=== PATIENT | female | born 1950 | race Caucasian/White ===

== ENCOUNTER 2018-01-10 05:17 | Observation (INO) | payer MEDICARE, OTHER, SELFPAY ==
[2017-12-28 10:14] VITALS: BP 181/94; PULSE 62; RESP 18; TEMP 36.7; O2SAT 95; BMI 39.7
--- NOTE | 2017-12-28 10:25 | SDCEKG_ITS ---
Test Reason : Blood Pressure : / mmHG Vent. Rate : 060 BPM Atrial Rate : 060 BPM P-R Int : 138 ms QRS Dur : 080 ms QT Int : 430 ms P-R-T Axes : 015 024 032 degrees QTc Int : 430 ms Normal sinus rhythm Normal ECG Confirmed by MARYAN BOYER, SHANICE ([id number]), society editor NENITA CERDA ([id number] on 12/30/2017 11:31:05 AM Referred By: Eric Hernandez Confirmed By:SHANICE STEINBERG MD
--- NOTE | 2018-01-05 10:18 | CASEMGMT ---
Social Work Note Placed call to pt to discuss discharge plan. Pt unavailable and SW left vm requesting a return phone call to RN NI Peterson. RN CM to f/u with post-operatively. Bee Garcia, REGIONAL BUSINESS MANAGER, SCHOOL CLERK
[2018-01-10] VITALS (16 sets, daily range): BP systolic 135–185; BP diastolic 64–89; PULSE 60–72; RESP 16–18; TEMP 36.2–37.1; O2SAT 95–100; BMI 39.7; BMI 41.5; BMI 39.8
[2018-01-10] MEDS: Acetaminophen 500 MG Tablet 1000 MG PO ×3 (05:55→22:11)
[2018-01-10] MEDS: oxyCODONE HCl Cr 10 MG Tablet PO (05:55)
[2018-01-10] MEDS: Celecoxib 200 MG Capsule 400 MG PO (05:55)
[2018-01-10 06:06] LABS: Bedside Glucose 109 mg/dL (70-110)
[2018-01-10] MEDS: Cefazolin 2 GM in 0.9% Normal Saline 100 ML IV (07:06)
--- NOTE | 2018-01-10 08:38 | PCM.OPRPT ---
Report of Operation Date of Procedure: 01/10/18 Pre-Operative Diagnosis: Severe end-stage osteoarthritis left knee Post-Operative Diagnosis: Severe end-stage osteoarthritis left knee Surgery/Procedure Performed:: Total knee arthroplasty left Description of Surgical Findings:: Eburnation of bone, subchondral sclerosis, periarticular osteophytes consistent with tricompartmental osteoarthritis resourcing advisor: Lul Bar Type of Anesthesia:: Spinal Anesthesiologist: Junito Lopez Special Medications: TXA Specimen's removed: bone and soft tissue Estimated Blood Loss (mL): 100 Fluids Replaced: see Anesthesia report Description of Procedure: Implants: Regular triathlon size 4 cemented posterior stabilized femur, 4 tibia, 32 x 10 mm patella all cemented with Simplex. 9 mm posterior stabilized articulating surface Indications: Patient has severe end-stage osteoarthritis diagnosed via x-rays in the knee. They have failed all forms of conservative measures including activity modification, injections, anti-inflammatories, use of assistive device. The patient has pain that affects on a daily basis and prevents him from doing things that they enjoyed. They have elected to undergo the above procedure. The risks of the procedure were discussed at length and their questions were answered. Procedure description: The patient was greeted in the preoperative area. The left knee was then marked with a surgical marker. Patient was then taken to or Suite 2. They were administered a dose of antibiotics as well as tranexamic acid. Once adequate anesthesia was obtained and airway was secured to placed in supine position on the operating room table. A well-padded tourniquet was placed on the affected extremity. Leg was then prepped and draped in the usual sterile fashion from the knee down. Ioban was used on the skin. Surgical timeout was then performed and confirmed with all present. Six-inch Esmarch was used to examine the limb and tourniquet was then inflated to 250 mmHg. A longitudinal incision was then planned and carried out in the anterior aspect of the knee. The dissection was then carried the length of the incision the extensor mechanism was identified. Standard medial parapatellar arthrotomy was then performed revealing severe eburnation of bone and periarticular osteophytes. There is complete loss of cartilage especially in the medial compartment with varus alignment. Anterior fat pad was removed for visualization purposes and the anterior medial aspect of the tibia was skeletonized for exposure to the knee. The knee was then flexed the patella was inverted. Opening reamer was then used in the femur approximately 1 cm anterior to the attachment of the PCL. The intramedullary valgus wand was then placed in the femur set at 5? of valgus. The distal femoral cutting jig was then applied to the femur with anticipated resection of approximately 8 mm. This was then made with a oscillating saw. The sizing guide was then placed referencing off the posterior condyles and also reference off the epicondylar axis. This was measured and the appropriate size 4-in-1 cutting jig was then applied to the distal femur. Anterior posterior cuts were made followed by the anterior and posterior chamfer cuts. These bony pieces and fragments were removed and placed on the back table. Posterior retractor was then utilized and the tibia was subluxed anteriorly. Extramedullary tibial alignment jig was then applied to the tibia referencing off the medial one third of the tibial tubercle the anterior tibial spine the middle aspect of the tibiotalar joint. Also reference off patient's [place] slope. The tibial cutting jig was then pinned with anticipated resection of 2 mm off of the deficient medial tibial condyle. This cut was made with the oscillating saw. Once this was complete a laminar demurrage man was utilized in both medial lateral meniscus were removed and a posterior capsular osteophytes were also removed. Posterior capsule release was performed in the posterior capsule as well as the geniculate arteries are treated with the aqua Christine. The tibia was incised and the appropriate sized tibial tray was then pinned. The femoral box cutting jig was then applied to the femur and the box was prepared removing a portion of the intercondylar notch. The femoral trial was then placed and the knee was trialed. Full flexion-extension were easily achieved. The knee seemed to balance quite nicely. Any remaining osteophytes were removed at this time. Once this was complete the patella was everted and the Merle patella reaming device was then utilized the patella was then placed in the appropriate jig and reamer was then used to remove approximately 9 mm of the undersurface of the patella. A soft tissue remaining was in the way was removed and patella trial was then placed listed maintain excellent tracking using the no thumbs technique. The tibial tray at this point was punched to accommodate the fins of the final implant. At this point cement was mixed on the back table. The trial components were removed and the knee was copiously irrigated. Did use a cocktail of injection for postoperative pain control. The final components were then cemented in the standard fashion and excess cement was removed with cement removal tools and patellar clamp is placed in the patella. As the cement had cured in full extension tourniquet was deflated and hemostasis was perfect with Bovie cautery as well as the aqua Manus. Needle is once again trialed with different size polyethylenes to ensure the full range of motion was achieved as well as excellent balancing ligamentously was achieved. At this point the knee was copiously irrigated. Final implant was then inserted locking mechanism was engaged and confirmed to be locked. The arthrotomy was then closed with #1 Vicryl aggravate type fashion interrupted. Subcutaneous tissue was closed with 0 Vicryl and surgical isaiah were placed in the skin. A occlusive silver impregnated dressing was then applied followed by well-padded sterile dressing secured with an Slim wrap. The patient was taken to the PACU in stable condition. No complications known at this time. Postoperatively we will maintain standard total knee postoperative protocol. The use of the physician child development assistant was integral during this procedure. They assisted with positioning placement of the tourniquet retracting closure and placement of the dressing. The procedure would have been much more difficult without their expertise and assistance - Complications None known - Admit VTE Documentation VTE Present on Admission: Yes VTE Mechan Device Prophylaxis: SCD's, Thigh High FUAD Hose VTE Pharm Prophylaxis ordered?: Yes
--- NOTE | 2018-01-10 08:43 | OP.PCM_ITS ---
Report of Operation Date of Procedure: 01/10/18 Pre-Operative Diagnosis: Severe end-stage osteoarthritis left knee Post-Operative Diagnosis: Severe end-stage osteoarthritis left knee Surgery/Procedure Performed:: Total knee arthroplasty left Description of Surgical Findings:: Eburnation of bone, subchondral sclerosis, periarticular osteophytes consistent with tricompartmental osteoarthritis track equipment operator: Lul Bar Type of Anesthesia:: Spinal Anesthesiologist: Junito Lopez Special Medications: TXA Specimen's removed: bone and soft tissue Estimated Blood Loss (mL): 100 Fluids Replaced: see Anesthesia report Description of Procedure: Implants: Regular triathlon size 4 cemented posterior stabilized femur, 4 tibia , 32 x 10 mm patella all cemented with Simplex. 9 mm posterior stabilized articulating surface Indications: Patient has severe end-stage osteoarthritis diagnosed via x-rays in the knee. They have failed all forms of conservative measures including activity modification, injections, anti-inflammatories, use of assistive device. The patient has pain that affects on a daily basis and prevents him from doing things that they enjoyed. They have elected to undergo the above procedure. The risks of the procedure were discussed at length and their questions were answered. Procedure description: The patient was greeted in the preoperative area. The left knee was then marked with a surgical marker. Patient was then taken to or Suite 2. They were administered a dose of antibiotics as well as tranexamic acid. Once adequate anesthesia was obtained and airway was secured to placed in supine position on the operating room table. A well-padded tourniquet was placed on the affected extremity. Leg was then prepped and draped in the usual sterile fashion from the knee down. Ioban was used on the skin. Surgical timeout was then performed and confirmed with all present. Six-inch Esmarch was used to examine the limb and tourniquet was then inflated to 250 mmHg. A longitudinal incision was then planned and carried out in the anterior aspect of the knee. The dissection was then carried the length of the incision the extensor mechanism was identified. Standard medial parapatellar arthrotomy was then performed revealing severe eburnation of bone and periarticular osteophytes. There is complete loss of cartilage especially in the medial compartment with varus alignment. Anterior fat pad was removed for visualization purposes and the anterior medial aspect of the tibia was skeletonized for exposure to the knee. The knee was then flexed the patella was inverted. Opening reamer was then used in the femur approximately 1 cm anterior to the attachment of the PCL. The intramedullary valgus wand was then placed in the femur set at 5? of valgus. The distal femoral cutting jig was then applied to the femur with anticipated resection of approximately 8 mm. This was then made with a oscillating saw. The sizing guide was then placed referencing off the posterior condyles and also reference off the epicondylar axis. This was measured and the appropriate size 4-in-1 cutting jig was then applied to the distal femur. Anterior posterior cuts were made followed by the anterior and posterior chamfer cuts. These bony pieces and fragments were removed and placed on the back table. Posterior retractor was then utilized and the tibia was subluxed anteriorly. Extramedullary tibial alignment jig was then applied to the tibia referencing off the medial one third of the tibial tubercle the anterior tibial spine the middle aspect of the tibiotalar joint. Also reference off patient's [place]. The tibial cutting jig was then pinned with anticipated resection of 2 mm off of the deficient medial tibial condyle. This cut was made with the oscillating saw. Once this was complete a laminar diesel engine specialist was utilized in both medial lateral meniscus were removed and a posterior capsular osteophytes were also removed. Posterior capsule release was performed in the posterior capsule as well as the geniculate arteries are treated with the aqua Christine. The tibia was incised and the appropriate sized tibial tray was then pinned. The femoral box cutting jig was then applied to the femur and the box was prepared removing a portion of the intercondylar notch. The femoral trial was then placed and the knee was trialed. Full flexion-extension were easily achieved. The knee seemed to balance quite nicely. Any remaining osteophytes were removed at this time. Once this was complete the patella was everted and the Merle patella reaming device was then utilized the patella was then placed in the appropriate jig and reamer was then used to remove approximately 9 mm of the undersurface of the patella. A soft tissue remaining was in the way was removed and patella trial was then placed listed maintain excellent tracking using the no thumbs technique. The tibial tray at this point was punched to accommodate the fins of the final implant. At this point cement was mixed on the back table. The trial components were removed and the knee was copiously irrigated. Did use a cocktail of injection for postoperative pain control. The final components were then cemented in the standard fashion and excess cement was removed with cement removal tools and patellar clamp is placed in the patella. As the cement had cured in full extension tourniquet was deflated and hemostasis was perfect with Bovie cautery as well as the aqua Manus. Needle is once again trialed with different size polyethylenes to ensure the full range of motion was achieved as well as excellent balancing ligamentously was achieved. At this point the knee was copiously irrigated. Final implant was then inserted locking mechanism was engaged and confirmed to be locked. The arthrotomy was then closed with #1 Vicryl aggravate type fashion interrupted. Subcutaneous tissue was closed with 0 Vicryl and surgical isaiah were placed in the skin. A occlusive silver impregnated dressing was then applied followed by well-padded sterile dressing secured with an Slim wrap. The patient was taken to the PACU in stable condition. No complications known at this time. Postoperatively we will maintain standard total knee postoperative protocol. The use of the physician behavioral assistant was integral during this procedure. They assisted with positioning placement of the tourniquet retracting closure and placement of the dressing. The procedure would have been much more difficult without their expertise and assistance - Complications None known - Admit VTE Documentation VTE Present on Admission: Yes VTE Mechan Device Prophylaxis: SCD's, Thigh High FUAD Hose VTE Pharm Prophylaxis ordered?: Yes
[2018-01-10 09:21] LABS: Bedside Glucose 126 mg/dL (70-110)
--- NOTE | 2018-01-10 14:43 | CASEMGMT ---
Addendum entered by Laura Peterson 01/10/18 14:44: Disposition Plan: Patient to discharge home with outpatient therapy, family support, and follow-up plans in place. Original Note: RN CM Face to Face with patient for initial transition planning/care coordination assessment. RN CM introduced self and role at [facility]. Patient sitting in chair, alert and oriented, at bedside. Patient willing to participate in assessment and is able to answer all questions appropriately. Care providers, pharmacy, and demographics verified. See link attached. Patient wishes to discharge home and is setup for outpatient therapy at [facility] for Wednesday, with providing transportation. Patient states she has no further needs or concerns at this time. CM to follow for discharge planning needs that may arise.
[2018-01-10] MEDS: Cefazolin 1 GM/50 ML BAG IV ×2 (15:03→22:10)
--- NOTE | 2018-01-10 15:08 | PCM.CONS.GEN ---
Problem List (1) EKG abnormalities Status: Acute (2) Osteoarthritis Status: Chronic Qualifiers: Osteoarthritis location: knee (3) Psoriatic arthritis Status: Chronic (4) HTN (hypertension) Status: Chronic (5) Hypothyroidism Status: Chronic (6) Diabetes mellitus Status: Chronic Reason for Consult Date of Consultation: 01/10/18 Reason for Consultation: post op EKG changes History of Present Illness: The patient is a 67 year old F with a hx of DMt2, HTN, hypothyroidism, psoriatic arthritis, who underwent a left total knee repair today with Dr. Hernandez and had post op EKG changes. She tolerated the procedure well and has minimal symptoms. There are new nonspecific ST segment changes seen on multiple leads that were not present on the preop EKG. She has had 2 negative troponins so far. She has no hx of UT. She is on diltiazem and she states this is only used for HTN, she denies any hx of arrhythmias. She has a murmur on exam, and tells me she has had this in the past, and denies valvular disorder. She had an echo last year that she states was done because of her age. She has a family history with both parents having heart disease, her father had an UT last year, her mother has had a CABG. She is currently resting comfortably in a chair. Since waking up she has had no chest pain, tightness, or pressure. She is not SOB. She had 1 episode of nausea without vomiting, and no associated diaphoresis. She denies dizziness or LH. She has some pain in her left knee. She is now maintained on tele. She is a t2 diabetic, she is unsure what her A1C is. She is only on metformin. She is on methotrexate and stelara for posoriatic arthritis. She takes both T3 and T4 replacement for hypothyroidism. [] Past Medical History Past Medical History (Chronic Problems): Chronic Problems Osteoarthritis (Chronic) Psoriatic arthritis (Chronic) HTN (hypertension) (Chronic) Hypothyroidism (Chronic) Diabetes mellitus (Chronic) Allergies No Known Allergies Allergy (Verified 12/28/17 09:51) Home Medications: Ambulatory Orders Medication Instructions Recorded Diltiazem HCl [Diltiazem 24Hr ER] 300 mg PO DAILY 12/28/17 Folic Acid 1 mg PO DAILY 12/28/17 Levothyroxine [Synthroid] 87.5 mcg PO SUTHFRSA 12/28/17 Levothyroxine [Synthroid] 175 mcg PO MOTUWE 12/28/17 Liothyronine Sodium 12.5 mcg PO DAILY 12/28/17 Metformin HCl [Glucophage] 500 mg PO BIDCM 12/28/17 Methotrexate 20 mg PO Q7D 12/28/17 Ustekinumab [Stelara] 90 mg SQ UD 12/28/17 [id number] IJ UD 12/28/17 Vitamind2 1.25 mg PO UD 12/28/17 Surgical History: total knee arthroplasty Psychiatric History: No pertinent psych hx ELEVATOR OPERATOR SERVICE History: No pertinent ELEVATOR OPERATOR SERVICE history Lives: Spouse/ Significant Other Smoking Status: Never smoker Tobacco Use: Non-smoker Alcohol: None Drugs: None - *Family History Maternal History Items: Heart Disease - CABG Paternal History Items: Heart Disease - UT Review of Systems Constitutional: Denies: Chills, Fever, Weight Change HEENT: Denies: Head Aches, Sinus Congestion, Sinus Drainage Cardiovascular: Denies: Chest Pain, Chest Pressure, Chest Tightness, Edema, Heaviness, Light Headedness, Orthopnea, Palpitations, Paroxysmal Noc. Dyspnea, Syncope Respiratory: Denies: Cough, Shortness of Breath, Shortness of breath at rest, Shortness of breath upon exertion, Sputum production, Wheezing Gastrointestinal: Reports: Nausea. Denies: Abdominal Pain, Vomiting Genitourinary: Denies: Dysuria Musculoskeletal: Reports: Joint Pain - left Skin: Denies: Rash, Wounds Neurological: Denies: Numbness, Tingling, Focal weakness Psychiatric: Denies: Anxiety, Depression, Homicidal Ideations, Suicidal Ideations Hematologic/ Lymphatic: Denies: Easy Bruising, Easy Bleeding Patient Problems: Active and Suspected Problems EKG abnormalities (Acute) - Physical Exam General: Alert, Oriented x3, Cooperative HEENT: Atraumatic, PERRLA, EOMI, Normocephalic Neck: Supple, No JVD, Negative Carotid Bruits Lungs: Clear to auscultation, Normal air movement Cardiovascular: Regular rate, Murmur - 3/6 systolic murmur left sternal border 2nd intercostal space Abdomen: Bowel Sounds Present, Soft, Non Tender Extremities: No edema, Capillary Refill Less than 3 Seconds Skin: No rashes, No breakdown Musculoskeletal: No Tenderness to Palpation of Joints or Extremities Neurological: Cranial nerves II-XII grossly intact Psych/Mental Status: Normal Affect, Appropriate Vital Signs Temp Pulse Resp BP Pulse Ox 98.0 F 61 16 161/82 H 98 01/10/18 12:49 01/10/18 12:49 01/10/18 12:49 01/10/18 12:49 01/10/18 13:10 Oxygen Flow Rate 2 Oxygen Delivery Method Nasal Cannula Weight: 109.7 kg Body Mass Index (BMI) 41.5 Finger Stick Blood Glucose 126 Intake and Output for Last 24 Hours 01/08/18 01/09/18 01/10/18 23:59 23:59 23:59 Intake Total 200 / 200 Balance 200 / 200 Laboratory Tests Past 24 Hrs 01/10/18 01/10/18 09:20 13:00 Troponin I < 0.02 0.05 POC Glucose 01/10/18 01/10/18 09:14 05:44 POC Glucose 126 H 109 Assessment/Plan Active and Suspected Problems EKG abnormalities (Acute) 1. Post op EKG changes - multiple nonspecific ST segment changes. Asymptomatic. Maintain on tele. Cycle enzymes - negative x 2. Repeat EKG in AM. Last echo january of 2016 with EF 65%, Mild 1+ TVI, pulmonary artery systolic pressure 30 mmHg, mild to moderate mitral annular calcification. + Systolic murmur on exam - pt confirms prior presence of murmur. BP is significantly elevated. Vitals otherwise stable. DC toradol with concern for acute cardiac condition. + family hx of heart dz. Ortho is giving 325 asa BID. 2. HTN - Add PRN hydralazine. poorly controlled currently - she takes diltiazem as outpatient only for HTN according to her - denies hx of arrhythmias. 3. Osteoarthritis - s/p left total knee post op d#0. management per ortho. 4. T2 DM - on metformin as outpatient. hold. sliding scale coverage. 5. Psoriatic arthritis - on methotrexate and stelara 6. Hypothyroidism - continue t3/4 replacement. DVT ppx: per ortho. 325 aspirin BID per ortho. This patient was seen by Surjit Bosch PA-C under the supervision of Dr. Miller
--- NOTE | 2018-01-10 15:18 | CON.PCM_ITS ---
Problem List (1) EKG abnormalities Status: Acute (2) Osteoarthritis Status: Chronic Qualifiers: Osteoarthritis location: knee (3) Psoriatic arthritis Status: Chronic (4) HTN (hypertension) Status: Chronic (5) Hypothyroidism Status: Chronic (6) Diabetes mellitus Status: Chronic Reason for Consult Date of Consultation: 01/10/18 Reason for Consultation: post op EKG changes History of Present Illness: The patient is a 67 year old F with a hx of DMt2, HTN, hypothyroidism, psoriatic arthritis, who underwent a left total knee repair today with Dr. Hernandez and had post op EKG changes. She tolerated the procedure well and has minimal symptoms. There are new nonspecific ST segment changes seen on multiple leads that were not present on the preop EKG. She has had 2 negative troponins so far. She has no hx of NC. She is on diltiazem and she states this is only used for HTN, she denies any hx of arrhythmias. She has a murmur on exam, and tells me she has had this in the past, and denies valvular disorder. She had an echo last year that she states was done because of her age. She has a family history with both parents having heart disease, her father had an NC last year, her mother has had a CABG. She is currently resting comfortably in a chair. Since waking up she has had no chest pain, tightness, or pressure. She is not SOB. She had 1 episode of nausea without vomiting, and no associated diaphoresis. She denies dizziness or LH. She has some pain in her left knee. She is now maintained on tele. She is a t2 diabetic, she is unsure what her A1C is. She is only on metformin. She is on methotrexate and stelara for posoriatic arthritis. She takes both T3 and T4 replacement for hypothyroidism. [] Past Medical History Past Medical History (Chronic Problems): Chronic Problems Osteoarthritis (Chronic) Psoriatic arthritis (Chronic) HTN (hypertension) (Chronic) Hypothyroidism (Chronic) Diabetes mellitus (Chronic) Allergies No Known Allergies Allergy (Verified 12/28/17 09:51) Home Medications: Ambulatory Orders Medication Instructions Recorded Diltiazem HCl [Diltiazem 24Hr ER] 300 mg PO DAILY 12/28/17 Folic Acid 1 mg PO DAILY 12/28/17 Levothyroxine [Synthroid] 87.5 mcg PO SUTHFRSA 12/28/17 Levothyroxine [Synthroid] 175 mcg PO MOTUWE 12/28/17 Liothyronine Sodium 12.5 mcg PO DAILY 12/28/17 Metformin HCl [Glucophage] 500 mg PO BIDCM 12/28/17 Methotrexate 20 mg PO Q7D 12/28/17 Ustekinumab [Stelara] 90 mg SQ UD 12/28/17 [id number] IJ UD 12/28/17 Vitamind2 1.25 mg PO UD 12/28/17 Surgical History: total knee arthroplasty Psychiatric History: No pertinent psych hx CLIENT SERVICE COORDINATOR History: No pertinent CLIENT SERVICE COORDINATOR history Lives: Spouse/ Significant Other Smoking Status: Never smoker Tobacco Use: Non-smoker Alcohol: None Drugs: None - *Family History Maternal History Items: Heart Disease - CABG Paternal History Items: Heart Disease - NC Review of Systems Constitutional: Denies: Chills, Fever, Weight Change HEENT: Denies: Head Aches, Sinus Congestion, Sinus Drainage Cardiovascular: Denies: Chest Pain, Chest Pressure, Chest Tightness, Edema, Heaviness, Light Headedness, Orthopnea, Palpitations, Paroxysmal Noc. Dyspnea, Syncope Respiratory: Denies: Cough, Shortness of Breath, Shortness of breath at rest, Shortness of breath upon exertion, Sputum production, Wheezing Gastrointestinal: Reports: Nausea. Denies: Abdominal Pain, Vomiting Genitourinary: Denies: Dysuria Musculoskeletal: Reports: Joint Pain - left Skin: Denies: Rash, Wounds Neurological: Denies: Numbness, Tingling, Focal weakness Psychiatric: Denies: Anxiety, Depression, Homicidal Ideations, Suicidal Ideations Hematologic/ Lymphatic: Denies: Easy Bruising, Easy Bleeding Patient Problems: Active and Suspected Problems EKG abnormalities (Acute) - Physical Exam General: Alert, Oriented x3, Cooperative HEENT: Atraumatic, PERRLA, EOMI, Normocephalic Neck: Supple, No JVD, Negative Carotid Bruits Lungs: Clear to auscultation, Normal air movement Cardiovascular: Regular rate, Murmur - 3/6 systolic murmur left sternal border 2nd intercostal space Abdomen: Bowel Sounds Present, Soft, Non Tender Extremities: No edema, Capillary Refill Less than 3 Seconds Skin: No rashes, No breakdown Musculoskeletal: No Tenderness to Palpation of Joints or Extremities Neurological: Cranial nerves II-XII grossly intact Psych/Mental Status: Normal Affect, Appropriate Vital Signs Temp Pulse Resp BP Pulse Ox 98.0 F 61 16 161/82 H 98 01/10/18 12:49 01/10/18 12:49 01/10/18 12:49 01/10/18 12:49 01/10/18 13:10 Oxygen Flow Rate 2 Oxygen Delivery Method Nasal Cannula Weight: 109.7 kg Body Mass Index (BMI) 41.5 Finger Stick Blood Glucose 126 Intake and Output for Last 24 Hours 01/08/18 01/09/18 01/10/18 23:59 23:59 23:59 Intake Total 200 / 200 Balance 200 / 200 Laboratory Tests Past 24 Hrs 01/10/18 01/10/18 09:20 13:00 Troponin I < 0.02 0.05 POC Glucose 01/10/18 01/10/18 09:14 05:44 POC Glucose 126 H 109 Assessment/Plan Active and Suspected Problems EKG abnormalities (Acute) 1. Post op EKG changes - multiple nonspecific ST segment changes. Asymptomatic. Maintain on tele. Cycle enzymes - negative x 2. Repeat EKG in AM. Last echo january of 2016 with EF 65%, Mild 1+ TVI, pulmonary artery systolic pressure 30 mmHg, mild to moderate mitral annular calcification. + Systolic murmur on exam - pt confirms prior presence of murmur. BP is significantly elevated. Vitals otherwise stable. DC toradol with concern for acute cardiac condition. + family hx of heart dz. Ortho is giving 325 asa BID. 2. HTN - Add PRN hydralazine. poorly controlled currently - she takes diltiazem as outpatient only for HTN according to her - denies hx of arrhythmias. 3. Osteoarthritis - s/p left total knee post op d#0. management per ortho. 4. T2 DM - on metformin as outpatient. hold. sliding scale coverage. 5. Psoriatic arthritis - on methotrexate and stelara 6. Hypothyroidism - continue t3/4 replacement. DVT ppx: per ortho. 325 aspirin BID per ortho. This patient was seen by Surjit Bosch PA-C under the supervision of Dr. Miller
[2018-01-10] MEDS: Aspirin 325 MG Tablet PO (16:16)
[2018-01-10] MEDS: Lactated Ringers 1,000 ML 125 ML IV (16:44)
[2018-01-10 17:26] LABS: Bedside Glucose 112 mg/dL (70-110)
--- NOTE | 2018-01-10 18:34 | EKG12_ITS ---
Test Reason : Blood Pressure : / mmHG Vent. Rate : 062 BPM Atrial Rate : 062 BPM P-R Int : 144 ms QRS Dur : 098 ms QT Int : 444 ms P-R-T Axes : 058 058 136 degrees QTc Int : 450 ms Normal sinus rhythm with sinus arrhythmia Septal infarct , age undetermined Nonspecific ST segment abnormality Abnormal ECG Confirmed by MARYAN BOYER, SHANICE ([id number]), editor department NENITA CERDA ([id number]) on 01/12/2018 1:39:08 PM Referred By: Eric Hernandez Confirmed By:SHANICE STEINBERG MD
--- NOTE | 2018-01-10 18:36 | ECHOD_ITS ---
Reason For Study: ABN EKG Procedure This was a 2D Doppler, Color Flow transthoracic echocardiogram. PT scanned in supine position due to LT TKR yesterday (01/10/18). The study was technically difficult. Exam performed portable in patient room. Left Ventricle Normal LV size. Left ventricular systolic function is hyperdynamic. The estimated ejection fraction is 75 %. No evidence for diastolic dysfunction. No regional wall motion abnormalities noted. Right Ventricle Normal RV size. Normal systolic function. Atria Normal left atrium. Normal right atrium. No doppler evidence for ASD. Mitral Valve There is moderate to severe mitral annular calcification. Extension of the mitral annular calcification onto the mitral valve leaflet. Trivial mitral valve insufficiency. Tricuspid Valve Normal tricuspid valve. Trivial tricuspid valve insufficiency. Right ventricular systolic pressure estimated to be 48 mmHg. Aortic Valve Trisinus/trileaflet aortic valve. Mild focal aortic valve calcification. Pulmonic Valve The pulmonic valve is not well visualized. Trivial eccentric pulmonic valve insufficiency. Great Vessels Normal sized aortic root. Pericardium/Pleural No pericardial effusion. MMode/2D Measurements & Calculations LVIDd: 4.4 cm IVSd: 1.4 cm LVOT diam: 1.9 cm LVIDs: 2.9 cm LVPWd: 1.1 cm LVOT area: 2.9 cm2 RVDd: 2.8 cm FS: 33.4 % Ao root diam: 3.2 cm LAV(MOD-bp): 56.1 ml LA A4 area: 18.6 cm2 LA dimension: 3.6 cm LAV(MOD-bp) Indexed: 26.5 ml/m2 LAV(MOD-sp2): 62.4 ml LAV(MOD-sp4): 52.2 ml RA A4 area: 13.8 cm2 Time Measurements MV dec time: 0.30 sec Doppler Measurements & Calculations MV E max weston: 121.8 cm/sec Lat Peak E' Weston: 11.7 cm/sec Med Peak E' Weston: 11.0 cm/sec MV A max weston: 149.7 cm/sec E/E' lat: 10.4 E/E' med: 11.1 MV E/A: 0.81 Ao V2 max: 247.0 cm/sec LV V1 max: 184.6 cm/sec SV(LVOT): 113.2 ml Ao max P.4 mmHg LV V1 max P.6 mmHg Ao V2 mean: 161.7 cm/sec LV V1 mean P.0 mmHg Ao mean P.7 mmHg LV V1 mean: 123.6 cm/sec Ao V2 VTI: 48.9 cm LV V1 VTI: 39.5 cm LIS(I,D): 2.3 cm2 LIS(V,D): 2.1 cm2 PA V2 max: 114.0 cm/sec TR max weston: 314.8 cm/sec TR max P.8 mmHg Interpretation Summary The study was technically difficult. Left ventricular systolic function is hyperdynamic. The estimated ejection fraction is 75 %. There is moderate to severe mitral annular calcification. Extension of the mitral annular calcification onto the mitral valve leaflet. Trivial mitral valve insufficiency. Trivial tricuspid valve insufficiency. Mild focal aortic valve calcification. Trivial eccentric pulmonic valve insufficiency. Right ventricular systolic pressure estimated to be 48 mmHg. No evidence for diastolic dysfunction. Ordering Physician: Thai Miller Referring Physician: Eric Hernandez Performed By: Ursula Austin, SARAH, RVT
[2018-01-10] MEDS: oxyCODONE 5 MG Tablet PO (20:00)
--- NOTE | 2018-01-10 20:30 | NURSING ---
Patient removed nitro paste patch at this time.
[2018-01-10] MEDS: Senna/Docusate Sodium 1 Tablet 2 TABLET PO (22:11)
[2018-01-10 22:21] LABS: Bedside Glucose 117 mg/dL (70-110)
[2018-01-11] VITALS (13 sets, daily range): BP systolic 156–176; BP diastolic 67–82; PULSE 63–107; RESP 16–18; TEMP 36.9–37.3; O2SAT 95–98
--- NOTE | 2018-01-11 03:10 | NURSING ---
This RN received report from LINDSAY Ghosh, & is taking over care of this patient.
--- NOTE | 2018-01-11 05:55 | EKG12_ITS ---
Test Reason : POST OP CHANGES Blood Pressure : / mmHG Vent. Rate : 057 BPM Atrial Rate : 057 BPM P-R Int : 146 ms QRS Dur : 084 ms QT Int : 450 ms P-R-T Axes : 037 036 035 degrees QTc Int : 438 ms Sinus bradycardia Otherwise normal ECG Confirmed by MARYAN BOYER, SHANICE ([id number]), make up editor NENITA CERDA ([id number] on 01/17/2018 1:26:47 PM Referred By: Eric Hernandez Confirmed By:SHANICE STEINBERG MD
[2018-01-11] MEDS: oxyCODONE 5 MG Tablet PO ×3 (05:57→19:38)
[2018-01-11] MEDS: Acetaminophen 500 MG Tablet 1000 MG PO ×3 (05:58→22:00)
[2018-01-11] MEDS: Levothyroxine 175 MCG Tablet PO (05:59)
[2018-01-11 06:21] LABS: Bedside Glucose 117 mg/dL (70-110)
[2018-01-11] MEDS: 0.9% NaCl Peripheral Flush Adult/Peds IV ×2 (06:55→22:00)
[2018-01-11] MEDS: Folic Acid 1 MG Tablet PO (07:46)
[2018-01-11] MEDS: Aspirin 325 MG Tablet PO ×2 (07:46→16:19)
--- NOTE | 2018-01-11 07:48 | PCM.PN.ORT ---
Patient Problems: Active and Suspected Problems EKG abnormalities (Acute) Subjective: Patient sitting at bedside eating breakfast. Patient's pain is well-managed. Patient denies chest pain, shortness breath, calf pain, nausea vomiting. Patient had mild ST changes intraoperatively. Patient states she has been asymptomatic postoperatively. No other complaints Objective: Dressings clean dry intact. Vital signs labs within normal limits. Serial cardiac enzymes are being drawn, and managed by medicine. Patient is neurovascular intact, afebrile. Negative signs and symptoms of DVT, patient is in no respiratory distress. - Physical Exam General: Alert, Oriented x3, Cooperative HEENT: PERRLA Oral: Moist Mucosa Cardiovascular: Regular rate Neurological: Cranial nerves II-XII grossly intact Psych/Mental Status: Normal Affect, Alert and oriented to time, place, person, mood and affect Vital Signs Temp Pulse Resp BP Pulse Ox 99.1 F 69 16 175/82 H 98 01/11/18 07:34 01/11/18 07:34 01/11/18 07:34 01/11/18 07:34 01/11/18 07:34 Oxygen Flow Rate 2 Oxygen Delivery Method Room Air Weight: 109.7 kg Body Mass Index (BMI) 41.5 Finger Stick Blood Glucose 126 Intake and Output for Last 24 Hours 01/09/18 01/10/18 01/11/18 23:59 23:59 23:59 Intake Total 200 / 200 2005 Output Total 600 / 600 Balance 200 / 200 1406 / 1406 Laboratory Tests Past 24 Hrs 01/10/18 01/10/18 01/10/18 09:20 13:00 17:05 Troponin I < 0.02 0.05 0.06 01/10/18 23:06 Troponin I 0.06 POC Glucose 01/11/18 01/10/18 01/10/18 06:12 22:09 16:15 POC Glucose 117 H 117 H 112 H 01/10/18 09:14 POC Glucose 126 H Assessment/Plan Active and Suspected Problems EKG abnormalities (Acute) Status post left total knee arthroplasty EKG changes intraoperatively\stable Plan 1. Continue all pain medications as prescribed 2. Begin physical therapy today, weight-bear as tolerated with walker 3. Aspirin 325 mg 1 p.o. every 12 hours ?30 days for postop DVT prophylaxis 4. Encourage incentive spirometry 5. Possible discharge home tomorrow 6. Medicine will continue to manage medically
[2018-01-11] MEDS: dilTIAZem CD 300 MG Capsule PO (10:40)
[2018-01-11] MEDS: Famotidine 20 MG Tablet PO (10:45)
[2018-01-11] MEDS: Senna/Docusate Sodium 1 Tablet 2 TABLET PO ×2 (10:45→22:00)
[2018-01-11 11:11] LABS: Bedside Glucose 141 mg/dL (70-110)
--- NOTE | 2018-01-11 12:46 | PCM.PROGNOTE ---
<Surjit Bosch - Last Filed: 01/11/18 12:46> Patient Problems: Active and Suspected Problems EKG abnormalities (Acute) Subjective: Consulted for post op EKG changes. The patient remains without any chest pain, tightness, or pressure. No SOB, diaphoresis. Some nausea this AM. Increased pain in left knee after working with PTOT. No dizziness or LH. No BLE swelling. - Physical Exam General: Alert, Oriented x3, Cooperative HEENT: Atraumatic, PERRLA, EOMI, Normocephalic Neck: Supple, No JVD, Negative Carotid Bruits Lungs: Clear to auscultation, Normal air movement Cardiovascular: Regular rate, No murmurs, Murmur - 3/6 systolic murmur best heard over the LST at 2nd intercostal space. Abdomen: Bowel Sounds Present, Soft, Non Tender Extremities: No edema, Capillary Refill Less than 3 Seconds Skin: No rashes, No breakdown Musculoskeletal: No Tenderness to Palpation of Joints or Extremities Neurological: Cranial nerves II-XII grossly intact Psych/Mental Status: Normal Affect, Appropriate, Alert and oriented to time, place, person, mood and affect Vital Signs Temp Pulse Resp BP Pulse Ox 99.1 F 69 16 175/82 H 96 01/11/18 07:34 01/11/18 07:34 01/11/18 07:34 01/11/18 07:34 01/11/18 07:45 Oxygen Flow Rate 2 Oxygen Delivery Method Room Air Weight: 109.7 kg Body Mass Index (BMI) 41.5 Finger Stick Blood Glucose 126 Intake and Output for Last 24 Hours 01/09/18 01/10/18 01/11/18 23:59 23:59 23:59 Intake Total 200 / 200 2005 Output Total 600 / 600 Balance 200 / 200 1406 / 1406 Laboratory Tests Past 24 Hrs 01/10/18 01/10/18 01/10/18 13:00 17:05 23:06 Troponin I 0.05 0.06 0.06 POC Glucose 01/11/18 01/11/18 01/10/18 10:54 06:12 22:09 POC Glucose 141 H 117 H 117 H 01/10/18 16:15 POC Glucose 112 H Assessment/Plan Active and Suspected Problems EKG abnormalities (Acute) 1. Post op EKG changes - multiple nonspecific ST segment changes. Asymptomatic. Cardiac enzymes are negative. Echocardiogram is negative. Repeat EKGs have normalized. Blood pressure remains elevated possibly 2/2 pain. 2. HTN - Diltiazem and PRN hydralazine. poorly controlled currently - she takes diltiazem as outpatient only for HTN according to her - denies hx of arrhythmias. 3. Osteoarthritis - s/p left total knee post op d#1. management per ortho. 4. T2 DM - on metformin as outpatient. hold. sliding scale coverage. 5. Psoriatic arthritis - on methotrexate and stelara 6. Hypothyroidism - continue t3/4 replacement. DVT ppx: per ortho. 325 aspirin BID per ortho. This patient was seen by Surjit Bosch PA-C under the supervision of Dr. Carrasco <Janusz Carrasco - Last Filed: 01/11/18 14:19> - Physical Exam General: Alert, Cooperative HEENT: Atraumatic, Normocephalic Neck: No JVD, No Nodes Lungs: Clear to auscultation, Normal air movement, No rhonchi, No wheeze Cardiovascular: Regular rate, Regular Rhythm, Normal S1, Normal S2 Abdomen: Bowel Sounds Present, Soft, Non Tender, Non-Distended, Obese Extremities: No edema, No Calf Tenderness Skin: No rashes, No breakdown Psych/Mental Status: Normal Affect, Appropriate Vital Signs Temp Pulse Resp BP Pulse Ox 36.9 C 71 16 159/79 H 98 01/11/18 13:57 01/11/18 13:57 01/11/18 13:57 01/11/18 13:57 01/11/18 13:57 Oxygen Flow Rate 2 Oxygen Delivery Method Room Air Weight: 109.7 kg Body Mass Index (BMI) 41.5 Finger Stick Blood Glucose 126 Intake and Output for Last 24 Hours 01/09/18 01/10/18 01/11/18 23:59 23:59 23:59 Intake Total 200 / 200 2005 Output Total 600 / 600 Balance 200 / 200 1406 / 1406 Laboratory Tests Past 24 Hrs 01/10/18 01/10/18 17:05 23:06 Troponin I 0.06 0.06 POC Glucose 01/11/18 01/11/18 01/10/18 10:54 06:12 22:09 POC Glucose 141 H 117 H 117 H 01/10/18 16:15 POC Glucose 112 H Assessment/Plan Patient seen and examined independently. Data reviewed. I agree with the above note by the physician gallery assistant. 1. Abnormal EKG Surgery, patient had some diffuse subtle ST depressions in the inferior as well as lateral leads. Subsequent EKGs showed resolution of these changes. Troponins peaked at 0.06. Patient was without any chest pain. Follow-up echocardiogram. If echocardiogram is unremarkable then patient will be medically stable for discharge. Code Visit Inpatient E&M: 44068 Subs Hosp L2
--- NOTE | 2018-01-11 12:49 | PN_ITS ---
<Surjit Bosch - Last Filed: 01/11/18 12:46> Patient Problems: Active and Suspected Problems EKG abnormalities (Acute) Subjective: Consulted for post op EKG changes. The patient remains without any chest pain, tightness, or pressure. No SOB, diaphoresis. Some nausea this AM. Increased pain in left knee after working with PTOT. No dizziness or LH. No BLE swelling. - Physical Exam General: Alert, Oriented x3, Cooperative HEENT: Atraumatic, PERRLA, EOMI, Normocephalic Neck: Supple, No JVD, Negative Carotid Bruits Lungs: Clear to auscultation, Normal air movement Cardiovascular: Regular rate, No murmurs, Murmur - 3/6 systolic murmur best heard over the LST at 2nd intercostal space. Abdomen: Bowel Sounds Present, Soft, Non Tender Extremities: No edema, Capillary Refill Less than 3 Seconds Skin: No rashes, No breakdown Musculoskeletal: No Tenderness to Palpation of Joints or Extremities Neurological: Cranial nerves II-XII grossly intact Psych/Mental Status: Normal Affect, Appropriate, Alert and oriented to time, place, person, mood and affect Vital Signs Temp Pulse Resp BP Pulse Ox 99.1 F 69 16 175/82 H 96 01/11/18 07:34 01/11/18 07:34 01/11/18 07:34 01/11/18 07:34 01/11/18 07:45 Oxygen Flow Rate 2 Oxygen Delivery Method Room Air Weight: 109.7 kg Body Mass Index (BMI) 41.5 Finger Stick Blood Glucose 126 Intake and Output for Last 24 Hours 01/09/18 01/10/18 01/11/18 23:59 23:59 23:59 Intake Total 200 / 200 2005 Output Total 600 / 600 Balance 200 / 200 1406 / 1406 Laboratory Tests Past 24 Hrs 01/10/18 01/10/18 01/10/18 13:00 17:05 23:06 Troponin I 0.05 0.06 0.06 POC Glucose 01/11/18 01/11/18 01/10/18 10:54 06:12 22:09 POC Glucose 141 H 117 H 117 H 01/10/18 16:15 POC Glucose 112 H Assessment/Plan Active and Suspected Problems EKG abnormalities (Acute) 1. Post op EKG changes - multiple nonspecific ST segment changes. Asymptomatic. Cardiac enzymes are negative. Echocardiogram is negative. Repeat EKGs have normalized. Blood pressure remains elevated possibly 2/2 pain. 2. HTN - Diltiazem and PRN hydralazine. poorly controlled currently - she takes diltiazem as outpatient only for HTN according to her - denies hx of arrhythmias. 3. Osteoarthritis - s/p left total knee post op d#1. management per ortho. 4. T2 DM - on metformin as outpatient. hold. sliding scale coverage. 5. Psoriatic arthritis - on methotrexate and stelara 6. Hypothyroidism - continue t3/4 replacement. DVT ppx: per ortho. 325 aspirin BID per ortho. This patient was seen by Surjit Bosch PA-C under the supervision of Dr. Carrasco <Janusz Carrasco - Last Filed: 01/11/18 14:19> - Physical Exam General: Alert, Cooperative HEENT: Atraumatic, Normocephalic Neck: No JVD, No Nodes Lungs: Clear to auscultation, Normal air movement, No rhonchi, No wheeze Cardiovascular: Regular rate, Regular Rhythm, Normal S1, Normal S2 Abdomen: Bowel Sounds Present, Soft, Non Tender, Non-Distended, Obese Extremities: No edema, No Calf Tenderness Skin: No rashes, No breakdown Psych/Mental Status: Normal Affect, Appropriate Vital Signs Temp Pulse Resp BP Pulse Ox 36.9 C 71 16 159/79 H 98 01/11/18 13:57 01/11/18 13:57 01/11/18 13:57 01/11/18 13:57 01/11/18 13:57 Oxygen Flow Rate 2 Oxygen Delivery Method Room Air Weight: 109.7 kg Body Mass Index (BMI) 41.5 Finger Stick Blood Glucose 126 Intake and Output for Last 24 Hours 01/09/18 01/10/18 01/11/18 23:59 23:59 23:59 Intake Total 200 / 200 2005 Output Total 600 / 600 Balance 200 / 200 1406 / 1406 Laboratory Tests Past 24 Hrs 01/10/18 01/10/18 17:05 23:06 Troponin I 0.06 0.06 POC Glucose 01/11/18 01/11/18 01/10/18 10:54 06:12 22:09 POC Glucose 141 H 117 H 117 H 01/10/18 16:15 POC Glucose 112 H Assessment/Plan Patient seen and examined independently. Data reviewed. I agree with the above note by the physician assistant manager quality management. 1. Abnormal EKG * Surgery, patient had some diffuse subtle ST depressions in the inferior as well as lateral leads. Subsequent EKGs showed resolution of these changes. * Troponins peaked at 0.06. Patient was without any chest pain. * Follow-up echocardiogram. If echocardiogram is unremarkable then patient will be medically stable for discharge. Code Visit Inpatient E&M: 69974 Subs Hosp L2
--- NOTE | 2018-01-11 15:10 | CASEMGMT ---
Medicare Outpatient Observation Notice completed with patient at this time. Patient voiced understanding and has no questions at this time. RN NI provided copy of signed notice to patient and filed original on chart. LINDSAY DAN also provided Medicare Inpatient vs Outpatient information packet.
[2018-01-11 16:31] LABS: Bedside Glucose 119 mg/dL (70-110)
[2018-01-11 22:26] LABS: Bedside Glucose 120 mg/dL (70-110)
[2018-01-12] VITALS (7 sets, daily range): BP systolic 136–168; BP diastolic 61–91; PULSE 66–82; RESP 16–18; TEMP 36.8–37.6; O2SAT 91–95
[2018-01-12] MEDS: oxyCODONE 5 MG Tablet PO (06:19)
[2018-01-12] MEDS: Levothyroxine 175 MCG Tablet PO (06:20)
[2018-01-12] MEDS: Acetaminophen 500 MG Tablet 1000 MG PO ×2 (06:20→14:54)
[2018-01-12 06:45] LABS: Bedside Glucose 121 mg/dL (70-110)
[2018-01-12] MEDS: 0.9% NaCl Peripheral Flush Adult/Peds IV (07:25)
[2018-01-12] MEDS: Ondansetron 4 MG/2 ML Vial IV (07:25)
[2018-01-12] MEDS: dilTIAZem CD 300 MG Capsule PO (08:32)
[2018-01-12] MEDS: Folic Acid 1 MG Tablet PO (08:33)
[2018-01-12] MEDS: Aspirin 325 MG Tablet PO (08:33)
[2018-01-12] MEDS: Senna/Docusate Sodium 1 Tablet 2 TABLET PO (08:33)
[2018-01-12] MEDS: Famotidine 20 MG Tablet PO (08:33)
[2018-01-12 11:11] LABS: Bedside Glucose 142 mg/dL (70-110)
--- NOTE | 2018-01-12 12:49 | PCM.PN.ORT ---
Patient Problems: Active and Suspected Problems EKG abnormalities (Acute) Subjective: Patient sitting at lunch, states pain is well-managed. Patient states she had some nausea associated with her pain medication. Feeling better now. No other complaints, denies chest pain, shortness breath, calf pain, or vomiting. Patient states she is ready for discharge home Objective: Dressings clean dry intact, vital signs labs within normal limits. Patient is afebrile neurovascular is otherwise intact. Negative signs or symptoms of DVT. Medicine evaluated and reviewed medical history and exam, reviewed echo, per medicine patient is stable and ready for discharge home. - Physical Exam General: Alert, Oriented x3, Cooperative HEENT: PERRLA Oral: Moist Mucosa Neurological: Cranial nerves II-XII grossly intact Psych/Mental Status: Normal Affect, Alert and oriented to time, place, person, mood and affect Vital Signs Temp Pulse Resp BP Pulse Ox 98.6 F 82 18 156/61 H 93 01/12/18 08:27 01/12/18 09:59 01/12/18 08:27 01/12/18 08:27 01/12/18 08:27 Oxygen Flow Rate 2 Oxygen Delivery Method Room Air Weight: 109.7 kg Body Mass Index (BMI) 41.5 Finger Stick Blood Glucose 126 Intake and Output for Last 24 Hours 01/10/18 01/11/18 01/12/18 23:59 23:59 23:59 Intake Total 200 / 200 2406 / 2406 500 / 500 Output Total 600 / 600 Balance 200 / 200 1806 / 1806 500 / 500 POC Glucose 01/12/18 01/12/18 01/11/18 10:56 06:17 21:55 POC Glucose 142 H 121 H 120 H 01/11/18 16:21 POC Glucose 119 H Assessment/Plan Active and Suspected Problems EKG abnormalities (Acute) Status post left total knee arthroplasty EKG changes intraoperatively\stable Plan 1. Continue all pain medications as prescribed 2. Continue physical therapy at [facility] [place], weight-bear as tolerated with walker 3. Aspirin 325 mg 1 p.o. every 12 hours ?30 days for postop DVT prophylaxis 4. Follow-up as scheduled, see pink sheet 5. Discharge home today 6. Patient will follow up with cardiology in 1-2 weeks
--- NOTE | 2018-01-12 13:00 | PCM.DC.TKR ---
Discharge Diet: No Restrictions Discharge Activity: May Not Drive May shower in (days): 1 Ice area for (Minutes): 20 - each hour while awake. Weight Bearing Status: Weight bearing as tolerated Elevate: Operative Extremity Additional Activity Instructions:: Wear elastic stockings for 2 weeks after your surgery. Call your doctor if your incision/area has: Continuous Slow Oozing, Sudden Increased Bleeding, Increased Pain/ Swelling, Increased Redness, Foul Smelling Discharge Call your doctor if you observe: Fever of 101 or Higher, Coldness, Increased Pain - in extremity, Numbness or Tingling, Change in Color, Calf discomfort, Uncontrolled pain Change Dressing in (Days):: 0 - and daily as needed. Remove Dressing in (days):: 8 Cleanse incision/area with: Soap & Water Allergies/Adverse Reactions: Allergies No Known Allergies Allergy (Verified 12/28/17 09:51) Medications to take at Discharge Diltiazem HCl [Diltiazem 24Hr ER] 300 mg PO DAILY 12/28/17 Folic Acid 1 mg PO DAILY 12/28/17 Levothyroxine [Synthroid] 87.5 mcg PO SUTHFRSA 12/28/17 Levothyroxine [Synthroid] 175 mcg PO MOTUWE 12/28/17 Liothyronine Sodium 12.5 mcg PO DAILY 12/28/17 Metformin HCl [Glucophage] 500 mg PO BIDCM 12/28/17 Ustekinumab [Stelara] 90 mg SQ UD 12/28/17 [id number] IJ UD 12/28/17 Vitamind2 1.25 mg PO UD 12/28/17 Acetaminophen [Tylenol] 1,000 mg PO Q8 #90 tab 01/12/18 Aspirin 325 mg PO BIDCM #60 tab 01/12/18 MorphINE [Ms Contin] 15 mg PO BID 7 Days #14 tab 01/12/18 Oxycodone [Oxyir] 5 - 10 mg PO Q6H PRN PRN 7 Days #45 tab 01/12/18 Scopolamine Patch 1mg/72hr [Transderm-Scop] 1 patch TD Q3D #4 patch 01/12/18 The following prescriptions were given: Oxycodone [Oxyir] 5 - 10 mg PO Q6H PRN PRN 7 Days #45 tab PRN Reason: Mod-Severe Pain (4-09/07) Acetaminophen [Tylenol] 1,000 mg PO Q8 #90 tab Scopolamine Patch 1mg/72hr [Transderm-Scop] 1 patch TD Q3D #4 patch Aspirin 325 mg PO BIDCM #60 tab MorphINE [Ms Contin] 15 mg PO BID 7 Days #14 tab Primary Care Physician: Tracie Mendez DO [Primary Care Provider] - Please Follow Up With: Eric Hernandez DO When: see pink sheet Please Follow Up With: Cheo Nath MD When: 1-2 weeks
[2018-01-12] MEDS: Scopolamine 1mg/72hr Patch 1 PATCH TD (14:53)
== END 2018-01-12 16:20 | disposition home or self-care (01) ==
LOC: ACINP 15:01 → MS3 15:01
PROVIDERS: Anesthesiology; Admitting Provider Orthopaedic Surgery; Family Provider Internal Medicine; PCP Internal Medicine
PROC: (CPT 27447; principal; 2018-01-10 06:50)
DX: M17.12 Unilateral primary osteoarthritis, left knee (principal); E11.9 Type 2 diabetes mellitus without complications; R94.31 Abnormal electrocardiogram [ECG] [EKG]; L40.50 Arthropathic psoriasis, unspecified; M06.9 Rheumatoid arthritis, unspecified; R01.1 Cardiac murmur, unspecified; E03.9 Hypothyroidism, unspecified; I10 Essential (primary) hypertension; Z79.899 Other long term (current) drug therapy; Z79.84 Long term (current) use of oral hypoglycemic drugs; R00.1 Bradycardia, unspecified; I08.3 Combined rheumatic disorders of mitral, aortic and tricuspid valves
CPT/HCPCS: 01402; 27447; 64447; 82962; 84484; 87081; 93005; 93306; 96361; 96365; 96366; 96375; 97110; 97116; 97162; 97166; 97530; 97535; 99218; J7120; A4216; G0378; G0379; J2405

== ENCOUNTER → 2018-03-22 06:55 | Outpatient (CLI) | payer MEDICARE, OTHER, SELFPAY ==
--- NOTE | 2018-03-22 11:45 | STRESSREP_ITS ---
Stress Test Report Date: 03/22/2018 Procedure: Pharmacologic stress nuclear imaging study Indications: Chest pain Consent: Per the patient Procedure: The patient underwent pharmacologic (Regadenoson) evaluation with a peak heart rate of 105 beats per minute (68 predicted maximal heart rate) and a peak blood pressure of 170/98 mmHg. The baseline ECG demonstrated sinus rhythm versus ectopic atrial rhythm with subtle nonspecific ST segment abnormality. The peak pharmacologic ECG demonstrated in this rhythm with the appearance of approximately 1 mm of horizontal/downsloping ST segment depression in leads I, II, III, aVF, and V5 through V6. There was a rare PVC during recovery. There was no complaint of chest discomfort during pharmacologic infusion or recovery. The examination was discontinued secondary to completion of protocol. Impression: 1. Pharmacologic (Regadenoson) evaluation 2. Peak pharmacologic ECG with appearance of approximately 1 mm of horizontal/ downsloping ST segment depression in leads I, II, III, aVF, and V5 through V6. 3. There was a rare PVC during recovery 4. Nuclear images pending Myocardial perfusion imaging study: Technique: The patient was injected with 14.4 millicuries of technetium 99m Cardiolite and subsequently rest SPECT Cardiolite nuclear imaging was obtained in the horizontal long, vertical long, and short axis views. The patient underwent pharmacologic (Regadenoson) evaluation with a peak heart rate of 105 beats per minute (68 % percent predicted maximal heart rate) and a peak blood pressure of 170/98 mmHg. The patient was injected with 44.0 millicuries of technetium 99m Cardiolite and subsequently stress SPECT Cardiolite nuclear imaging was obtained in the horizontal long, vertical long, and short axis views. A gated Cardiolite study at peak stress was obtained. Interpretation: Rest and stress SPECT Cardiolite nuclear imaging status post realignment, normalization, and attenuation correction demonstrate status post stress, the appearance of diminished myocardial perfusion/tracer uptake in portions of the distal anterior septum and apical areas. There is end systolic thickening and brightening. The gated Cardiolite study demonstrates myocardial thickening and inward wall motion. The reported LVEF is 69 %. Impression: 1. Rest and stress SPECT Cardiolite nuclear imaging demonstrate status post stress the appearance of diminished mycardio perfusion/tracer uptake in portions of the distal anterior septum and apical areas appearing compatible with stress-induced myocardial ischemia. 2. The gated Cardiolite study reports an LVEF of 69 %. This note was generated with [employer] software. It may contain incorrect words, spelling, and punctuation that were not noted in checking the note before signing.
== END ==
PROVIDERS: Family Provider Internal Medicine; PCP Internal Medicine; Visit Provider Physician Assistant Medical
DX: R07.9 Chest pain, unspecified (principal); R94.31 Abnormal electrocardiogram [ECG] [EKG]
CPT/HCPCS: 78452; 93017; A9500; A4216; J2785

== ENCOUNTER → 2018-03-24 16:29 | Outpatient (CLI) | payer MEDICARE, OTHER, SELFPAY ==
[2018-03-24 16:42] LABS: Absolute Lymphocyte Count 1.73 X10^3/ul (0.83-4.51); Absolute Neutrophil Count 4.1 X10^3/uL (2.0-7.7); Basophil# 0.02 X10^3/uL; Basophil% 0.3 % (0-1); Eosinophil# 0.25 X10^3/uL; Eosinophils% 3.8 % (0-5); Hematocrit 39.7 % (37-47); Hemoglobin 12.6 g/dl (12.0-15.0); Lymphocyte # 1.73 X10^3/ul (4.0); Lymphocyte % 26.1 % (19-41); Mean Corp Hgb Conc 31.7 g/gl (32-36); Mean Corpuscular Hgb 27.9 pg (27.0-32.0); Mean Corpuscular Volume 87.8 fL (81-99); Mean Platelet Vol. 10.9 fl (6.2-12.0); Monocyte# 0.51 X10^3/uL; Monocyte% 7.7 % (0-10); Neutrophil # 4.11 X10^3/uL (2.7-7.7); Neutrophil % 61.9 % (47-70); Platelet Count 233 K/mm3 (150-450); RBC Distribution Width CV 13.6 % (11.6-14.6); Red Blood Count 4.52 M/mm3 (4.2-5.4); White Blood Count 6.6 K/mm3 (4.4-11.0)
--- NOTE | 2018-03-24 16:50 | RAD_ITS ---
STUDY: X-RAY CHEST REASON FOR EXAM: Female, 67 years old. Abnormal stress test. TECHNIQUE: Frontal and lateral views of the chest. COMPARISON: 04/16/2016. FINDINGS: The lungs are clear and expanded. There is no demonstrated pleural abnormality. Normal size heart. Normal mediastinum and jag. Normal visualized pulmonary arteries. Normal visualized aortic arch and descending thoracic aorta. There are diffuse degenerative changes of the visualized thoracic spine. Normal visualized ribs, clavicles, and shoulders. There is no demonstrated abnormality of the visualized soft tissue structures of the upper abdomen. RAD/Chest PA and Lateral IMPRESSION: No change or acute abnormality. Electronically Signed: Joey Roberts MD at 22:54 EDT , Service support ,
[2018-03-24 16:58] LABS: POSITIVE COUNT NO; POSITIVE DIFFERENTIAL NO; POSITIVE MORPHOLOGY NO
[2018-03-24 17:13] LABS: Anion Gap 6 (5-15); BUN 16 mg/dL (7-18); BUN/Creat Ratio 20.8 RATIO (10-20); Calcium,Total 9.2 mg/dL (8.5-10.1); Chloride 105 mmol/L (98-107); Creatinine, Serum 0.77 mg/dL (0.55-1.02); EST Glomerular Filtration Rate 79 mL/min (>60); Est Glom Filt Rate - Afr Amer 96 mL/min (>60); Glucose 96 mg/dL (74-106); Potassium 3.8 mmol/L (3.5-5.1); Sodium Level 140 mmol/L (136-145)
== END ==
PROVIDERS: Family Provider Internal Medicine; PCP Internal Medicine; Visit Provider Internal Medicine Cardiovascular Disease
DX: R94.39 Abnormal result of other cardiovascular function study (principal)
CPT/HCPCS: 36415; 71046; 80048; 85025

== ENCOUNTER → 2018-04-05 07:48 | Day surgery (SDC) | payer MEDICARE, OTHER, SELFPAY ==
[2018-04-04 10:25] VITALS: BMI 39.6
--- NOTE | 2018-04-05 10:32 | CL.D_ITS ---
Patient Name: VIPIN CHANG Study Date: 04/05/2018 Performing: Raman Pederson MD Ht: 64.17 inches 163 cm : 1950 Wt: 231.49 lbs 105 kg Age: 67 Gender: female BSA: 2.09 PROCEDURE(S) PERFORMED [id number]/LV CLINICAL PROFILE AND INDICATIONS Indications: Suspected CAD Heart Failure: None Stress/Imaging Stress Test w/SPECT MPI: Yes Result: PositiveStress Test with SPECT MPI: Positive Angina Classification Anginal Classification w/in 2 Weeks: No symptoms CONCLUSIONS Elevated Left Ventricular End Diastolic Pressure Normal LV size, wall motion,and systolic function LVEF: by LV gram 70 % [place] Multivessel CAD Mitral Valve Annular Calcification Severe annular calcification RECOMMENDATIONS Risk factor modification Medical therapy Surgery consult for coronary revascularization DESCRIPTION OF PROCEDURE The patient arrived to the procedure lab. The risks and benefits of the procedure as well as a full d escription of our services here and current unavailability of surgical backup were fully explained to the patient and/or their significant other prior to the catheterization. The Timeout was completed, verifying the correct patient and procedure. The patient's procedural site was prepped and draped in the usual fashion. Local anesthetic was given subcutaneously to right groin region with Lidocaine 2%. Using a modified Seldinger technique, arterial access was obtained via the right femoral artery, a 4 Fr sheath was inserted Left Coronary Artery selective angiography was performed in multiple views us ing a 4 Fr. JL4 catheter. Right Coronary Artery selective angiography was then performed in multiple views using a 4 Fr. JR4 catheter. Left Ventriculography was performed in GONZALEZ projection using a 4 Fr. Pigtail catheter. LV to AO pullback pressures were then recorded.The arterial sheath was pulled and manual compression applied until hemostasis is achieved. CORONARY ANGIOGRAPHY DOMINANCE: Right Dominant LEFT HEART ASSESSMENT Left Ventricular Ejection Fraction: by LV Gram 70 % Normal LV wall motion Elevated Left Ventricular End Diastolic Pressure LVEDP: 18 mmHg LEFT MAIN: Mild calcification, Proximal: 50 % Stenosis LEFT ANTERIOR DECENDING ARTERY: Mild calcification MID LAD: S/P SP: subtotally occluded with the mid to distal vessel filling partially from antegrade f low and left to left collateral flow but predominantly from right to left collateral flow DIAGONAL 1: Ostial - 85 % Stenosis, Proximal - 75 % Stenosis, Mid - bifurcating vessel with the small er of the bifurcating branches with a proximal 85% stenosis CIRCUMFLEX ARTERY: Mild luminal irregularities OM 1: Proximal - Mild luminal irregularities RIGHT CORONARY ARTERY: Mild calcification PROX RCA: Eccentric: 25 % Stenosis, Eccentric: 85 % Stenosis MID RCA: Eccentric: 85 % Stenosis DISTAL RCA: Diffuse: 10-25 % Stenosis VALVE FINDINGS: Normal Aortic Valve function Mitral Valve Annular Calcification Severe AORTIC ROOT: Angiographically normal COMPLICATIONS No Complications PROCEDURE MEDICATIONS Versed 1 mg IV Oxygen: 2 L/min via nasal cannula SUMMARY OF HEMODYNAMIC DATA Time AIR REST ECG 08:25:12 AO 176/81 (116) SA 09:09:08 LV 215/7, 18 09:17:12 LV 193/7, 15 09:17:22 LV 185/5, 17 09:18:55 LV 202/5, 17 09:19:02 LVp 193/2, 17 09:19:06 AOp 191/81 (120) 09:19:12 Signed By Raman Pederson MD On 04/05/2018 10:32:16 Raman Pederson MD
== END ==
PROVIDERS: Family Provider Internal Medicine; PCP Internal Medicine; Visit Provider Internal Medicine Cardiovascular Disease
DX: R94.39 Abnormal result of other cardiovascular function study (principal); R94.31 Abnormal electrocardiogram [ECG] [EKG]; E11.9 Type 2 diabetes mellitus without complications; I10 Essential (primary) hypertension; E06.3 Autoimmune thyroiditis; E03.9 Hypothyroidism, unspecified; E78.5 Hyperlipidemia, unspecified; M19.90 Unspecified osteoarthritis, unspecified site; I73.9 Peripheral vascular disease, unspecified; L40.50 Arthropathic psoriasis, unspecified; E66.3 Overweight; Z68.39 Body mass index [BMI] 39.0-39.9, adult; Z79.84 Long term (current) use of oral hypoglycemic drugs; Z79.82 Long term (current) use of aspirin; Z79.899 Other long term (current) drug therapy
CPT/HCPCS: 93458; 99152; 99153; J7040; Q9967; C1894

== ENCOUNTER → 2018-04-07 12:57 | Outpatient (CLI) | payer MEDICARE, OTHER, SELFPAY ==
[2018-04-07 16:06] LABS: Anion Gap 10 (5-15); BUN 17 mg/dL (7-18); BUN/Creat Ratio 23.3 RATIO (10-20); Calcium,Total 8.8 mg/dL (8.5-10.1); Chloride 104 mmol/L (98-107); Creatinine, Serum 0.73 mg/dL (0.55-1.02); EST Glomerular Filtration Rate 84 mL/min (>60); Est Glom Filt Rate - Afr Amer 102 mL/min (>60); Glucose 86 mg/dL (74-106); Potassium 4.1 mmol/L (3.5-5.1); Sodium Level 141 mmol/L (136-145)
== END ==
PROVIDERS: Family Provider Internal Medicine; PCP Internal Medicine; Visit Provider Internal Medicine Cardiovascular Disease
DX: I10 Essential (primary) hypertension (principal); I25.10 Atherosclerotic heart disease of native coronary artery without angina pectoris
CPT/HCPCS: 36415; 80048

== ENCOUNTER → 2018-05-04 14:35 | Outpatient (CLI) | payer MEDICARE, OTHER, SELFPAY ==
--- NOTE | 2018-05-04 14:35 | DT_ITS ---
This patient was seen during an EMR downtime May 02, 2018 - May 09, 2018. This patient may have a combination of paper and electronic documentation or all paper documentation. All documentation is viewable within the e-chart portion of [facility] for each patient visit.
[2018-05-09 14:47] LABS: Thyroid Stim Hormone (TSH) 0.55 uIU/mL (0.358-3.74)
== END ==
PROVIDERS: Family Provider Internal Medicine; PCP Internal Medicine; Visit Provider Internal Medicine
DX: R94.6 Abnormal results of thyroid function studies (principal)
CPT/HCPCS: 36415; 84443

== ENCOUNTER → 2018-07-07 07:01 | Outpatient (CLI) | payer MEDICARE, OTHER, SELFPAY ==
--- NOTE | 2018-07-07 07:07 | PCM.CR.ITP ---
General Information - General Information Admitting Diagnosis: CABG - Education/Goals Barriers to Learning: None Individual Counseling: Initial Assessment: Abnormal Cholesterol Levels, High Blood Pressure, Overweight/Obesity, Diabetes, B. Waist Circumference >35/Females >40/Males, Hypertension, Sedentary Lifestyle, Stress, Family History of Heart Disease (under 65 years) Cardiac Rehabilitation Goals: 1. Maintain the individual as the primary focus of care. 2. To improve the patient's quality of life. 3. Identification of cardiac risk factors and provide cardiac risk factor management. 4. Enhance the psychosocial status of the patient. 5. Reconditioning enough to allow the patient to resume customary activities. 6. Control symptoms of cardiac disease Scale for measuring improvement of personal goals: Enter appropriate number in Comments. 2 = Unchanged. 3 = Slightly Better. 4 = Moderate Improvement. 5 = Met my Goal Personal Goals: Initial Assessment: Improve management of stress and emotions, Improve energy level, Improve knowledge of cardiac disease, Improve muscle strength and endurance, Improve diet and eating habits (eat healthier), Control risk factors (learn risk factor modification) Exercise - Initial Assessment - Visit Date of Eval: 07/07/18 - Stages of Change Stages of Change:: Action - Exercise Prescription Mode:: Treadmill, Biodyne, Rower, Airdyne, NuStep - Hypertension Do any of the following apply?: Yes - Intervention Home Exercise/Activity Goal:: Sitting Time <3 hrs/day - Education Goals:: Warm-up, RPE KARRIE Scale, S/S, Safe Exercise, Self-Monitoring - Exercise Program Goals Exercise Program Goals: Aerobic Activity >30 min, B/P <130/80 Nutrition - Initial Assessment - Program Goals Nutrition Program Goals: LDL <70. Total Cholesterol <200. HDL >45. Triglycerides <150. HgbA1C <7%. BMI <25 - Visit Date of Assessment:: 07/07/18 - Stages of Change Stages of Change:: Action - Diabetes Diabetes:: Yes Insulin: No Non-Insulin Dependent?: Yes Do you monitor your blood sugar at home?: Yes - Weight Management Height: 1.63 m Weight:: 106.141 kg Weight Goal (kg):: 140 kg Body Fat %:: 40.1 Goal % Body Fat:: 24 - Intervention Referral to dietitian:: Yes Referral to Diabetic Clinic:: Yes Will attend diet classes:: Yes - Education Gave educational materials for:: Signs & symptoms of hypoglycemia, Signs & symptoms of hyperglycemia, Relate diabetes to coronary artery disease, Healthy eating Tobacco - Initial Assessment - Program Goals Tobacco Program Goals: Complete smoking cessation. Attend education classes. Improve Knowledge Test score - Stage of Change Stages of Change:: Maintenance - Learning Barriers Learning Barriers: Ready to Learn Total Score:: 12 - Family Support Do you have family support?: Yes - Tobacco Use Tobacco Use: Non-smoker Psychosocial - Initial Assess - Target Goals Target Goals: Assess presence or absence of depression. Using a valid screening tool, maximizes coping skills. Positive support system - Stages of Change Stages of Change:: Action - Psychosocial Test Tool Used:: HANDS Depression Questionnaire Self-reported stress:: yes Tests Completed: SF - 36 survey completed, Mood Scale Test Total Mood Screening Score:: 9 Self-Efficacy Score:: 4 - Intervention PS - Interventions: Yes Attend Stress Management Classes, Yes Uses Stress Management Skills, No Referral to Mental Health, No Referral to [facility] Case Management, No Referral to Physician - Education Gave educational materials for:: Coping techniques, Signs & symptoms of depression, Stress management, Relaxation techniques - Patient/Program Goal Preventative Medication(s):: Aspirin, KATELYN inhibitor, Clopidogrel, Beta frank, Statin/lipid - Assistive Devices Assistive Devices:: None Fall Risk Assessed:: Yes Patient Health Questionnaire Initial Assessment 1. Little interest or pleasure in doing things: Several days 2. Feeling down, depressed, or hopeless: Several days 3. Trouble falling or staying asleep, or sleeping too much: More than half the days 4. Feeling tired or having little energy: Several days 5. Poor appetite or overeating: Several days 6. Feeling bad about yourself -- or that you are a failure or have let yourself or your family down: Several days 7. Trouble concentrating on things, such as reading the newspaper or watching television: More than half the days 8. Moving or speaking so slowly that other people could have noticed. Or the opposite - being so fidgety or restless that you have been moving around a lot more than usual: Not at all 9. Thoughts that you would be better off , or of hurting yourself in some way: Not at all How difficult have these problems made it for you to do your work, take care of things at home, or get along with other people?: Somewhat difficult Total Score: 9 CATE-Q SV Test - Statements CAD is a disease of the arteries in the heart: False Examples of risk factors for heart disease: True Angina is chest pain or discomfort: False The benefits of resistance training include: True Eating more meat and dairy products: False Anti-platelet medications such as aspirin are important: I Don't Know The only effective way to manage stress: I Don't Know An exercise warm-up slowly increases heart rate: True Prepared, processed foods usually have high sodium: True Depression is common after a heart attack: I Don't Know The statin medications lower cholesterol: True To control blood pressure, lower the amount of sodium: I Don't Know If someone gets chest discomfort during walking: I Don't Know Transfats are partially hydrogenated vegetable oils: True Sleep apnea that is not treated increases the risk: I Don't Know To control cholesterol, one should become a vegetarian: False Someone knows if he/she is exercising at the right level: I Don't Know Diabetes cannot be prevented with exercise & health eating: False Stress is a large risk for heart attack: True A diet that can help lower blood pressure is rich in: True - Total Score Total Correct Responses: 12 Self-Efficacy Initial Assessment We would like to know how confident you are in doing certain activities. Please select your confidence level for:: Select your confidence level for the following using the scale 1-10 where 1 is not at all confident and 10 is totally confident. Your score is the average of all 6 responses. Fatigue: How confident are you that you can keep the fatigue caused by your disease from interfering with the things you want to do? Select Number: 5 Physical Discomfort or Pain: How confident are you that you can keep the physical discomfort or pain of your disease from interfering with the things you want to do? Select Number: 5 Emotional Distress: How confident are you that you can keep the emotional distress caused by your disease from interfering with the things you want to do? Select Number: 3 Other Symptoms or Health Problems: How confident are you that you can keep other symptoms or health problems from interfering with the things you want to do? Select Number: 5 Different Tasks and Activities: How confident are you that you can do the different tasks and activities needed to manage your health condition so as to reduce your need to see a doctor? Select Number: 5 Medication: How confident are you that you can do things other than just taking medication to reduce how much your illness affects your everyday life? Select Number: 5 Total Score:: 4 Nutrition Survey - Nutrition Survey Instructions Scoring Instructions: Scoring is as follows: Yes = 1 points. No = 0 point. Patient score that is >/=12 is considered to be at potential nutritional risk and could benefit from a referral to a registered dietitian. - Nutrition Survey Initial Have you lost >10 lbs over the past 2 months without trying?: No Are you following a special diet at home for diabetes, low fat, or low salt?: No Are you interested in meeting with a dietitian for help understanding your diet?: Yes Do you eat less than 3 meals a day?: No Do you eat fatty meats (looney, sausage, ribs, etc), fried foods, desserts, large amounts of salad dressings, margarine, butter, or cheese most days?: No Do you have food allergies? [Enter types in comment field]: No Do you eat in restaurants more than 3 times a week?: No Do you season food with salt, seasoning salt, or garlic salt?: Yes Do you used canned, boxed, frozen meals, or soups, seasoning packets?: Yes Total Score:: 3
--- NOTE | 2018-07-07 07:08 | PCM.CR.HP2 ---
CR - History & Physical - General Arrival date:: 07/07/18 Arrival time:: 07:08 Date of Referral:: 07/07/18 Date of CR Evaluation:: 07/07/18 Referring Physician: Dr. Rickey Pederson Primary Diagnosis: CABG - History of Present Cardiac Event Onset Date: Enter Onset Date of cardiac illnesses in Comment field below Current stable Angina Pectoris:: No Acute Myocardial Infarction within 12 months:: No Coronary Artery Bypass Graft:: Yes - 05/26/18 Heart valve replacement or repair:: No PTCA or coronary stenting:: No Heart or Heart-Lung Transplant:: No Heart Failure EF <35%:: No Type of Symptoms:: Chest heaviness Interventions with present event:: Stress test 04/05/18, CABG 05/26/18 Were there any complications?: Afib post op - Medications Home Medications: Ambulatory Orders Medication Instructions Recorded Diltiazem HCl [Diltiazem 24Hr ER] 300 mg PO DAILY 12/28/17 Folic Acid 1 mg PO DAILY 12/28/17 Levothyroxine [Synthroid] 87.5 mcg PO SUTHFRSA 12/28/17 Metformin HCl [Glucophage] 500 mg PO BIDCM 12/28/17 Ustekinumab [Stelara] 90 mg SQ UD 12/28/17 Acetaminophen [Tylenol] 1,000 mg PO Q8 #90 tab 01/12/18 cyanocobalamin (vit B-12) 1,000 1,000 mcg IM .QOWEEK ml 02/21/18 mcg/mL injection solution ergocalciferol (vitamin D2) 50,000 50,000 unit PO .2week cap 03/24/18 unit capsule levothyroxine 175 mcg tablet 175 mcg PO MOTUWE 03/24/18 meloxicam 15 mg tablet 15 mg PO QDAY 03/24/18 methotrexate sodium (PF) 50 mg 50 mg .ROUTE QWEEK 03/24/18 solution for injection metoprolol tartrate 25 mg tablet 25 mg PO BID #60 tab 04/05/18 aspirin 81 mg tablet,delayed 81 mg PO QDAY #30 tab 04/20/18 release isosorbide dinitrate 30 mg tablet 30 mg PO ONCE #30 tab 05/23/18 liothyronine 25 mcg tablet 25 mcg PO DAILY tab 05/27/18 - Allergies Allergies/Adverse Reactions: Allergies No Known Allergies Allergy (Verified 04/04/18 10:40) - Sleep Disorder Evaluation Hx of Sleep Apnea: No Do you snore loudly (louder than talking or can be heard through closed doors)?: No Do you often feel tired/ fatigued/ sleepy during daytime?: Yes Has anyone observed you stop breathing during sleep?: No History of Hypertension (for STOP score): Yes STOP Results: Positive Advanced Directives - Advanced Directives Power of Pet Groomer: No Living Will: No Advance Directives Information Provided: Yes Advance Directives on File: No DNR Order?:: No Past Medical History - Past Medical Illness Medical History: Past Medical History (Last Updated 04/05/18 @ 14:17 by Malinda Greenwood) Atherosclerotic heart disease of [place] coronary artery without angina pectoris (Chronic) I25.10 Type 2 diabetes mellitus (Chronic) E11.9 EKG abnormalities (Acute) R94.31 HTN (hypertension) (Chronic) I10 Hypothyroidism (Chronic) E03.9 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 Hyperlipidemia E78.5 Osteoarthritis M19.90 Peripheral vascular disease I73.9 Psoriatic arthritis L40.50 - Past Surgical History Surgical History: Past Surgical History (Last Reviewed 03/24/18 @ 15:21 by Malinda Greenwood) History of cholecystectomy Z90.49 History of total hysterectomy Z90.710 Status post total left knee replacement Z96.652 History of tonsillectomy Z90.89 Surgical History: cholecystectomy, hysterectomy, total knee arthroplasty, tonsillectomy - Family History Summary Family History: Family History (Last Reviewed 03/24/18 @ 15:21 by Malinda Greenwood) Father Hypertension Mother Heart disease Social History - Smoking History Smoking Status: Never smoker Hx Smoking Exposure: No - Alcohol Use Alcohol Usage: No - Substance Abuse Hx Substance Use: No - Occupation Occupation (List type of work in comments):: Retired - Hobbies, Recreation, Social Activities Hobbies: Reading, Other - golf Recreational Activities: I am able to engage in all my recreational activities Social Environment - Status Marital Status: - Current Living Arrangements Living Environment:: Spouse - Children How many children do you have?: 1 Do any of your children live nearby?: No - Safety Do you feel safe in your surroundings?: Yes - Assistance Do you need any assistance at home?: no Review of Systems - Review of Systems Hints: Right click = Denies (Slash). Left click = Reports ([place]) Review of Present Symptoms: Reports: PVD, Operative Discomfort - spasms across chest, Fatigue, Appetite - Normal, Appetite - Special Diet - watches sugar, fats, Sleep - Normal - sleeps poorly some nights.. Denies: Shortness of Breath at Rest, Shortness of Breath with Exertion, Angina, Wound Healing, Dizziness/Lightheadedness, Heart Arrhythmia/Irregularities, Sexual Changes - Pain Is Patient Pain Free?: No Pain Location: chest Pain Level: 5/10 Previous experience dealing with pain?: Tylenol relax and read Risk Factor Assessment - Chief Complaint Chief Complaint: s/p CABG - Pulse Pulse Rate: 58 Pulse Rhythm: Regular - Hypertension How long have you been treated?: 20+ years On medication(s)?: yes Blood Pressure Sitting - Right Arm: 174/90 Blood Pressure Sitting - Left Arm: 160/74 - Stress Stress: Recent - spouse with early stages of Dementia, father 97 with dementia, Long-standing, Home/Family - Diabetes Diabetic History: Type II Nutrition Referral for Diabetes: Yes - Obesity Height: 1.63 m Weight:: 106.141 kg Weight in Pounds: 234.0 lbs Body Mass Index (BMI): 40.1 Desired Body Weight: 150 Realistic Weight Goal (Loss of 1-2 lbs/week): 210 Nutritional Referral for Obesity: Yes - Physical Inactivity Physical Inactivity: Reg Exercise 30 min/day - walking and outdoor things - Risk Stratification Risk Guidelines: Lowest Risk: Risk Factor for Smoking, Moderate Risk: Risk Factor for Dyslipidemia, Risk Factor for Diabetes, Risk Factor for Hypertension, Risk Factor for Sedentary Lifestyle, Risk Factor for Depression, Highest Risk: Risk Factor for Obesity - For Smoking Smoking Risk Guidelines: Smoking Low Risk: None or quit greater than 6 months ago. Smoking Moderate Risk: Smoker or quit 6 months or less ago. Smoking High Risk: Smoker - For Dyslipidemia Dyslipidemia Risk Guidelines: Low Risk: Moderate Risk: High Risk: 15-25% fat 25.1-29% fat >/= 30% fat. <7% sat fat 7-9% sat fat >9% sat fat. <150 mg chol 150-299 mg chol >/= 300 mg chol. LDL <100 LDL 100-129 LDL >/= 130. Chol/HDL ratio <5.0 Chol/HDL ratio 5.0-6.0 Chol/HDL ratio >6.0. Triglycerides <100 Triglycerides 100-149 Triglycerides >/= 150 - For Diabetes Mellitus Diabetes Risk Guidelines: Diabetes Low Risk: HgA1c <6.5% and/or FBG <120. Diabetes Moderate Risk: HgA1c 6.6-7.9% and/or FBG 120-180. Diabetes High Risk: HgA1c >/= 8% and/or FBG >180 - For Obesity/Overweight Obesity/Overweight Risk Guidelines: Obesity Low Risk: BMI <25.0. Obesity Moderate Risk: BMI 25-29.9. Obesity High Risk: BMI >/= 30.0 - For Hypertension Hypertension Risk Guidelines: Hypertension Low Risk: Systolic <120 and Diastolic <80. Hypertension Moderate Risk: Systolic 120-139 and Diastolic 80-89. Hypertension High Risk: Systolic >/= 140 and Diastolic >/= 90 - For Sedentary Lifestyle Sedentary Lifestyle Risk Guidelines: Sedentary Lifestyle Low Risk: >/= 1,500 kcal/week. Sedentary Lifestyle Moderate Risk: 700-1,499 kcal/week. Sedentary Lifestyle High Risk: < 700 kcal/week - For Depression Depression Risk Guidelines: Depression Low Risk: Not clinically depressed. Depression Moderate Risk: Mildly depressed. Depression High Risk: Clinically depressed - Family History Family History: Family History (Last Reviewed 03/24/18 @ 15:21 by Malinda Greenwood) Father Hypertension Mother Heart disease Motivation - Motivation to Participate On a scale of 1 to 10, how prepared are you to commit to attending program?: 10
--- NOTE | 2018-07-07 07:13 | CR.HP_ITS ---
CR - History & Physical - General Arrival date:: 07/07/18 Arrival time:: 07:08 Date of Referral:: 07/07/18 Date of CR Evaluation:: 07/07/18 Referring Physician: Dr. Rickey Pederson Primary Diagnosis: CABG - History of Present Cardiac Event Onset Date: Enter Onset Date of cardiac illnesses in Comment field below Current stable Angina Pectoris:: No Acute Myocardial Infarction within 12 months:: No Coronary Artery Bypass Graft:: Yes - 05/26/18 Heart valve replacement or repair:: No PTCA or coronary stenting:: No Heart or Heart-Lung Transplant:: No Heart Failure EF <35%:: No Type of Symptoms:: Chest heaviness Interventions with present event:: Stress test 04/05/18, CABG 05/26/18 Were there any complications?: Afib post op - Medications Home Medications: Ambulatory Orders Medication Instructions Recorded Diltiazem HCl [Diltiazem 24Hr ER] 300 mg PO DAILY 12/28/17 Folic Acid 1 mg PO DAILY 12/28/17 Levothyroxine [Synthroid] 87.5 mcg PO SUTHFRSA 12/28/17 Metformin HCl [Glucophage] 500 mg PO BIDCM 12/28/17 Ustekinumab [Stelara] 90 mg SQ UD 12/28/17 Acetaminophen [Tylenol] 1,000 mg PO Q8 #90 tab 01/12/18 cyanocobalamin (vit B-12) 1,000 1,000 mcg IM .QOWEEK ml 02/21/18 mcg/mL injection solution ergocalciferol (vitamin D2) 50,000 50,000 unit PO .2week cap 03/24/18 unit capsule levothyroxine 175 mcg tablet 175 mcg PO MOTUWE 03/24/18 meloxicam 15 mg tablet 15 mg PO QDAY 03/24/18 methotrexate sodium (PF) 50 mg 50 mg .ROUTE QWEEK 03/24/18 solution for injection metoprolol tartrate 25 mg tablet 25 mg PO BID #60 tab 04/05/18 aspirin 81 mg tablet,delayed 81 mg PO QDAY #30 tab 04/20/18 release isosorbide dinitrate 30 mg tablet 30 mg PO ONCE #30 tab 05/23/18 liothyronine 25 mcg tablet 25 mcg PO DAILY tab 05/27/18 - Allergies Allergies/Adverse Reactions: Allergies No Known Allergies Allergy (Verified 04/04/18 10:40) - Sleep Disorder Evaluation Hx of Sleep Apnea: No Do you snore loudly (louder than talking or can be heard through closed doors)? : No Do you often feel tired/ fatigued/ sleepy during daytime?: Yes Has anyone observed you stop breathing during sleep?: No History of Hypertension (for STOP score): Yes STOP Results: Positive Advanced Directives - Advanced Directives Power of Bass String Winder: No Living Will: No Advance Directives Information Provided: Yes Advance Directives on File: No DNR Order?:: No Past Medical History - Past Medical Illness Medical History: Past Medical History (Last Updated 04/05/18 @ 14:17 by Malinda Greenwood) Atherosclerotic heart disease of [place] coronary artery without angina pectoris (Chronic) I25.10 Type 2 diabetes mellitus (Chronic) E11.9 EKG abnormalities (Acute) R94.31 HTN (hypertension) (Chronic) I10 Hypothyroidism (Chronic) E03.9 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 Hyperlipidemia E78.5 Osteoarthritis M19.90 Peripheral vascular disease I73.9 Psoriatic arthritis L40.50 - Past Surgical History Surgical History: Past Surgical History (Last Reviewed 03/24/18 @ 15:21 by Malinda Greenwood) History of cholecystectomy Z90.49 History of total hysterectomy Z90.710 Status post total left knee replacement Z96.652 History of tonsillectomy Z90.89 Surgical History: cholecystectomy, hysterectomy, total knee arthroplasty, tonsillectomy - Family History Summary Family History: Family History (Last Reviewed 03/24/18 @ 15:21 by Malinda Greenwood) Father Hypertension Mother Heart disease Social History - Smoking History Smoking Status: Never smoker Hx Smoking Exposure: No - Alcohol Use Alcohol Usage: No - Substance Abuse Hx Substance Use: No - Occupation Occupation (List type of work in comments):: Retired - Hobbies, Recreation, Social Activities Hobbies: Reading, Other - golf Recreational Activities: I am able to engage in all my recreational activities Social Environment - Status Marital Status: - Current Living Arrangements Living Environment:: Spouse - Children How many children do you have?: 1 Do any of your children live nearby?: No - Safety Do you feel safe in your surroundings?: Yes - Assistance Do you need any assistance at home?: no Review of Systems - Review of Systems Hints: Right click = Denies (Slash). Left click = Reports ([place]) Review of Present Symptoms: Reports: PVD, Operative Discomfort - spasms across chest, Fatigue, Appetite - Normal, Appetite - Special Diet - watches sugar, fats , Sleep - Normal - sleeps poorly some nights.. Denies: Shortness of Breath at Rest, Shortness of Breath with Exertion, Angina, Wound Healing, Dizziness/ Lightheadedness, Heart Arrhythmia/Irregularities, Sexual Changes - Pain Is Patient Pain Free?: No Pain Location: chest Pain Level: 5/10 Previous experience dealing with pain?: Tylenol relax and read Risk Factor Assessment - Chief Complaint Chief Complaint: s/p CABG - Pulse Pulse Rate: 58 Pulse Rhythm: Regular - Hypertension How long have you been treated?: 20+ years On medication(s)?: yes Blood Pressure Sitting - Right Arm: 174/90 Blood Pressure Sitting - Left Arm: 160/74 - Stress Stress: Recent - spouse with early stages of Dementia, father 97 with dementia, Long-standing, Home/Family - Diabetes Diabetic History: Type II Nutrition Referral for Diabetes: Yes - Obesity Height: 1.63 m Weight:: 106.141 kg Weight in Pounds: 234.0 lbs Body Mass Index (BMI): 40.1 Desired Body Weight: 150 Realistic Weight Goal (Loss of 1-2 lbs/week): 210 Nutritional Referral for Obesity: Yes - Physical Inactivity Physical Inactivity: Reg Exercise 30 min/day - walking and outdoor things - Risk Stratification Risk Guidelines: Lowest Risk: Risk Factor for Smoking, Moderate Risk: Risk Factor for Dyslipidemia, Risk Factor for Diabetes, Risk Factor for Hypertension , Risk Factor for Sedentary Lifestyle, Risk Factor for Depression, Highest Risk : Risk Factor for Obesity - For Smoking Smoking Risk Guidelines: Smoking Low Risk: None or quit greater than 6 months ago. Smoking Moderate Risk: Smoker or quit 6 months or less ago. Smoking High Risk: Smoker - For Dyslipidemia Dyslipidemia Risk Guidelines: Low Risk: Moderate Risk: High Risk: 15-25% fat 25.1-29% fat >/= 30% fat. <7% sat fat 7-9% sat fat >9% sat fat. <150 mg chol 150-299 mg chol >/= 300 mg chol. LDL <100 LDL 100-129 LDL >/= 130. Chol/HDL ratio <5.0 Chol/HDL ratio 5.0-6.0 Chol/HDL ratio >6.0. Triglycerides <100 Triglycerides 100-149 Triglycerides >/= 150 - For Diabetes Mellitus Diabetes Risk Guidelines: Diabetes Low Risk: HgA1c <6.5% and/or FBG <120. Diabetes Moderate Risk: HgA1c 6.6-7.9% and/or FBG 120-180. Diabetes High Risk: HgA1c >/= 8% and/or FBG >180 - For Obesity/Overweight Obesity/Overweight Risk Guidelines: Obesity Low Risk: BMI <25.0. Obesity Moderate Risk: BMI 25-29.9. Obesity High Risk: BMI >/= 30.0 - For Hypertension Hypertension Risk Guidelines: Hypertension Low Risk: Systolic <120 and Diastolic <80. Hypertension Moderate Risk: Systolic 120-139 and Diastolic 80-89. Hypertension High Risk: Systolic >/= 140 and Diastolic >/= 90 - For Sedentary Lifestyle Sedentary Lifestyle Risk Guidelines: Sedentary Lifestyle Low Risk: >/= 1 ,500 kcal/week. Sedentary Lifestyle Moderate Risk: 700-1,499 kcal/week. Sedentary Lifestyle High Risk: < 700 kcal/week - For Depression Depression Risk Guidelines: Depression Low Risk: Not clinically depressed. Depression Moderate Risk: Mildly depressed. Depression High Risk: Clinically depressed - Family History Family History: Family History (Last Reviewed 03/24/18 @ 15:21 by Malinda Greenwood) Father Hypertension Mother Heart disease Motivation - Motivation to Participate On a scale of 1 to 10, how prepared are you to commit to attending program?: 10
[2018-07-07 08:29] VITALS: BP 160/74; BP 174/90; PULSE 58; BMI 40.1
== END ==
PROVIDERS: Family Provider Internal Medicine; PCP Internal Medicine; Visit Provider Internal Medicine Cardiovascular Disease
DX: Z95.1 Presence of aortocoronary bypass graft (principal)

== ENCOUNTER 2018-07-27 10:15 | Outpatient (RCR) | payer MEDICARE, OTHER, SELFPAY ==
--- NOTE | 2018-07-22 11:34 | PCM.CR.ITP ---
General Information - General Information Admitting Diagnosis: CABG - Education/Goals Cardiac Rehabilitation Goals: 1. Maintain the individual as the primary focus of care. 2. To improve the patient's quality of life. 3. Identification of cardiac risk factors and provide cardiac risk factor management. 4. Enhance the psychosocial status of the patient. 5. Reconditioning enough to allow the patient to resume customary activities. 6. Control symptoms of cardiac disease Scale for measuring improvement of personal goals: Enter appropriate number in Comments. 2 = Unchanged. 3 = Slightly Better. 4 = Moderate Improvement. 5 = Met my Goal Exercise - 30-day Assessment - Visit Date of Eval: 07/22/18 Session #:: 5 - Stages of Change Stages of Change:: Action - Exercise Prescription Mode:: Treadmill, Airdyne, NuStep Frequency (x/week): 3 Duration:: 30 METs - Progression: 0.5-1 MET as tolerated: 3 Target Heart Rate:: 114-121 Max HR 95 - Hypertension Resting Blood Pressure:: 176/84 Peak Exercise Blood Pressure:: 184/90 Medication Changes:: Yes - Lisinopril 10 mg daily - Intervention Home Exercise/Activity Goal:: Sitting Time <3 hrs/day - Education Goals:: Warm-up, RPE KARRIE Scale, S/S, Safe Exercise, Self-Monitoring - Exercise Program Goals Exercise Program Goals: Aerobic Activity >30 min, B/P <130/80 Nutrition - Initial Assessment - Program Goals Nutrition Program Goals: LDL <70. Total Cholesterol <200. HDL >45. Triglycerides <150. HgbA1C <7%. BMI <25 - Diabetes Do you monitor your blood sugar at home?: Yes Nutrition - 30-Day Assessment - Program Goals Nutrition Program Goals: LDL <70. Total Cholesterol <200. HDL >45. Triglycerides <150. HgbA1C <7%. BMI <25 - Visit Date of Eval: 07/22/18 - Stages of Change Stages of Change:: Action - Diabetes Diabetes:: Yes - Weight Management Weight:: 105.007 kg - Intervention Referral to dietitian:: Yes Referral to Diabetic Clinic:: Yes Will attend diet classes:: Yes - Education Attended class for:: Signs & symptoms of hypoglycemia, Signs & symptoms of hyperglycemia, Relate diabetes to coronary artery disease, Healthy eating Tobacco - Initial Assessment - Program Goals Tobacco Program Goals: Complete smoking cessation. Attend education classes. Improve Knowledge Test score - Learning Barriers Learning Barriers: Ready to Learn Tobacco - 30-Day Assessment - Program Goals Tobacco Program Goals: Complete smoking cessation. Attend education classes. Improve Knowledge Test score - Stage of Change Stages of Change:: Action - Learning Barriers Learning Barriers: Participates in education - Family Support Do you have family support?: Yes - Tobacco Use Tobacco Use: Non-smoker Do you use smokeless tobacco?: No - Intervention Smoking Cessation Referral:: No Individual Education/Counseling:: No Education Schedule Given:: Yes - Education Attended class for:: Tobacco triggers, Coronary artery disease, Risk factors, Medical compliance, Cardiac A&P, Angina signs & symptoms Psychosocial - Initial Assess - Target Goals Target Goals: Assess presence or absence of depression. Using a valid screening tool, maximizes coping skills. Positive support system - Psychosocial Test Tool Used:: HANDS Depression Questionnaire - Assistive Devices Fall Risk Assessed:: Yes Psychosocial - 30-Day Assess - Target Goals Target Goals: Assess presence or absence of depression. Using a valid screening tool, maximizes coping skills. Positive support system - Stages of Change Stages of Change:: Action - Psychosocial Test Tool Used:: HANDS Depression Questionnaire - Intervention PS - Interventions: Yes Attend Stress Management Classes, Yes Uses Stress Management Skills, No Referral to Mental Health, No Referral to [facility] Case Management, No Referral to Physician Patient Health Questionnaire 30-Day Re-eval Assessment 1. Little interest or pleasure in doing things: Several days 2. Feeling down, depressed, or hopeless: Several days 3. Trouble falling or staying asleep, or sleeping too much: More than half the days 4. Feeling tired or having little energy: Several days 5. Poor appetite or overeating: Several days 6. Feeling bad about yourself -- or that you are a failure or have let yourself or your family down: Several days 7. Trouble concentrating on things, such as reading the newspaper or watching television: More than half the days 8. Moving or speaking so slowly that other people could have noticed. Or the opposite - being so fidgety or restless that you have been moving around a lot more than usual: Not at all 9. Thoughts that you would be better off , or of hurting yourself in some way: Not at all How difficult have these problems made it for you to do your work, take care of things at home, or get along with other people?: Somewhat difficult Total Score: 9 Self-Efficacy 30-Day Re-eval Assessment We would like to know how confident you are in doing certain activities. Please select your confidence level for:: Select your confidence level for the following using the scale 1-10 where 1 is not at all confident and 10 is totally confident. Your score is the average of all 6 responses. Fatigue: How confident are you that you can keep the fatigue caused by your disease from interfering with the things you want to do? Select Number: 5 Physical Discomfort or Pain: How confident are you that you can keep the physical discomfort or pain of your disease from interfering with the things you want to do? Select Number: 5 Emotional Distress: How confident are you that you can keep the emotional distress caused by your disease from interfering with the things you want to do? Select Number: 4 Other Symptoms or Health Problems: How confident are you that you can keep other symptoms or health problems from interfering with the things you want to do? Select Number: 5 Different Tasks and Activities: How confident are you that you can do the different tasks and activities needed to manage your health condition so as to reduce your need to see a doctor? Select Number: 5 Medication: How confident are you that you can do things other than just taking medication to reduce how much your illness affects your everyday life? Select Number: 5 Total Score:: 4
[2018-07-22 11:40] VITALS: BP 176/84; BP 184/90
== END 2018-07-29 23:59 ==
LOC: CR 10:15
PROVIDERS: Family Provider Internal Medicine; PCP Internal Medicine; Visit Provider Internal Medicine Cardiovascular Disease
DX: I25.10 Atherosclerotic heart disease of native coronary artery without angina pectoris (principal); Z95.1 Presence of aortocoronary bypass graft
CPT/HCPCS: 93798

== ENCOUNTER 2018-08-24 08:30 | Outpatient (RCR) | payer MEDICARE, OTHER, SELFPAY | END 2018-08-28 23:59 | LOC: DC 08:30 | PROVIDERS: Family Provider Internal Medicine; PCP Internal Medicine; Visit Provider Internal Medicine Cardiovascular Disease | DX: E11.9 Type 2 diabetes mellitus without complications (principal); Z68.41 Body mass index [BMI] 40.0-44.9, adult; Z71.3 Dietary counseling and surveillance | CPT/HCPCS: 97802; G0108 ==

== ENCOUNTER 2018-08-26 10:15 | Outpatient (RCR) | payer MEDICARE, OTHER, SELFPAY ==
[2018-07-30 01:44] VITALS: BP 176/84; BP 184/90
--- NOTE | 2018-08-24 11:40 | CR.ITP_ITS ---
General Information - General Information Admitting Diagnosis: CABG - Education/Goals Cardiac Rehabilitation Goals: 1. Maintain the individual as the primary focus of care. 2. To improve the patient's quality of life. 3. Identification of cardiac risk factors and provide cardiac risk factor management. 4. Enhance the psychosocial status of the patient. 5. Reconditioning enough to allow the patient to resume customary activities. 6. Control symptoms of cardiac disease Scale for measuring improvement of personal goals: Enter appropriate number in Comments. 2 = Unchanged. 3 = Slightly Better. 4 = Moderate Improvement. 5 = Met my Goal Exercise - 60-Day Assessment - Visit Date of Eval: 08/24/18 Session #:: 16 - Exercise Prescription Mode:: Treadmill, Airdyne, NuStep Frequency (x/week): 3 Duration:: 30 METs: 5.5 Target Heart Rate:: 121-129 - Hypertension Resting Blood Pressure:: 158/80 Peak Exercise Blood Pressure:: 174/84 Medication Changes:: Yes - 08/10 Lasix 20 mg daily, 08/19 Diltiazem dc'd - Intervention Home Exercise/Activity Goal:: Sitting Time <3 hrs/day - Education Goals:: Warm-up, RPE KARRIE Scale, S/S, Safe Exercise, Self-Monitoring - Exercise Program Goals Exercise Program Goals: Aerobic Activity >30 min, B/P <130/80 Nutrition - Initial Assessment - Program Goals Nutrition Program Goals: LDL <70. Total Cholesterol <200. HDL >45. Triglycerides <150. HgbA1C <7%. BMI <25 - Diabetes Do you monitor your blood sugar at home?: Yes Nutrition - 60-Day Assessment - Program Goals Nutrition Program Goals: LDL <70. Total Cholesterol <200. HDL >45. Triglycerides <150. HgbA1C <7%. BMI <25 - Visit Date of Eval: 08/24/18 - Stages of Change Stages of Change:: Action - Diabetes Diabetes:: Yes - Intervention Referral to Diabetic Clinic:: Yes Will attend diet classes:: Yes - Education Attended class for:: Signs & symptoms of hypoglycemia, Signs & symptoms of hyperglycemia, Relate diabetes to coronary artery disease, Healthy eating Tobacco - Initial Assessment - Program Goals Tobacco Program Goals: Complete smoking cessation. Attend education classes. Improve Knowledge Test score - Learning Barriers Learning Barriers: Ready to Learn Tobacco - 60-Day Assessment - Program Goals Tobacco Program Goals: Complete smoking cessation. Attend education classes. Improve Knowledge Test score - Stage of Change Stages of Change:: Action - Learning Barriers Learning Barriers: Participates in education - Family Support Do you have family support?: Yes - Tobacco Use Tobacco Use: Non-smoker Do you use smokeless tobacco?: No - Intervention Smoking Cessation Referral:: No Individual Education/Counseling:: No Education Schedule Given:: Yes - Education Attended class for:: Tobacco triggers, Coronary artery disease, Risk factors, Sexuality, Medical compliance, Cardiac A&P, Angina signs & symptoms Psychosocial - Initial Assess - Target Goals Target Goals: Assess presence or absence of depression. Using a valid screening tool, maximizes coping skills. Positive support system - Psychosocial Test Tool Used:: HANDS Depression Questionnaire - Assistive Devices Fall Risk Assessed:: Yes Psychosocial - 60-Day Assess - Target Goals Target Goals: Assess presence or absence of depression. Using a valid screening tool, maximizes coping skills. Positive support system - Stages of Change Stages of Change:: Action - Psychosocial Test Tool Used:: HANDS Depression Questionnaire - Intervention PS - Interventions: Yes Attend Stress Management Classes, Yes Uses Stress Management Skills, No Referral to Mental Health, No Referral to [facility] Case Management, No Referral to Physician - Education Attended classes for:: Coping techniques, Signs & symptoms of depression, Stress management, Relaxation techniques - Assistive Devices Assistive Devices:: None Fall Risk Assessed:: Yes Patient Health Questionnaire 60-Day Re-eval Assessment 1. Little interest or pleasure in doing things: Several days 2. Feeling down, depressed, or hopeless: Several days 3. Trouble falling or staying asleep, or sleeping too much: More than half the days 4. Feeling tired or having little energy: Several days 5. Poor appetite or overeating: Several days 6. Feeling bad about yourself -- or that you are a failure or have let yourself or your family down: Several days 7. Trouble concentrating on things, such as reading the newspaper or watching television: More than half the days 8. Moving or speaking so slowly that other people could have noticed. Or the opposite - being so fidgety or restless that you have been moving around a lot more than usual: Not at all 9. Thoughts that you would be better off , or of hurting yourself in some way: Not at all How difficult have these problems made it for you to do your work, take care of things at home, or get along with other people?: Somewhat difficult Total Score: 9 Self-Efficacy 60-Day Re-eval Assessment We would like to know how confident you are in doing certain activities. Please select your confidence level for:: Select your confidence level for the following using the scale 1-10 where 1 is not at all confident and 10 is totally confident. Your score is the average of all 6 responses. Fatigue: How confident are you that you can keep the fatigue caused by your disease from interfering with the things you want to do? Select Number: 5 Physical Discomfort or Pain: How confident are you that you can keep the physical discomfort or pain of your disease from interfering with the things you want to do? Select Number: 5 Emotional Distress: How confident are you that you can keep the emotional distress caused by your disease from interfering with the things you want to do? Select Number: 4 Other Symptoms or Health Problems: How confident are you that you can keep other symptoms or health problems from interfering with the things you want to do? Select Number: 5 Different Tasks and Activities: How confident are you that you can do the different tasks and activities needed to manage your health condition so as to reduce your need to see a doctor? Select Number: 5 Medication: How confident are you that you can do things other than just taking medication to reduce how much your illness affects your everyday life? Select Number: 5 Total Score:: 4
[2018-08-24 11:43] VITALS: BP 158/80; BP 174/84
== END 2018-08-28 23:59 ==
LOC: CR 10:15
PROVIDERS: Family Provider Internal Medicine; PCP Internal Medicine; Visit Provider Internal Medicine Cardiovascular Disease
DX: I25.10 Atherosclerotic heart disease of native coronary artery without angina pectoris (principal); Z95.1 Presence of aortocoronary bypass graft; E11.9 Type 2 diabetes mellitus without complications; Z68.41 Body mass index [BMI] 40.0-44.9, adult; Z71.3 Dietary counseling and surveillance
CPT/HCPCS: 93798; G0108

== ENCOUNTER 2018-09-01 08:43 | Outpatient (RCR) | payer MEDICARE, OTHER, SELFPAY | END 2018-09-28 23:59 | LOC: DC 08:43 | PROVIDERS: Family Provider Internal Medicine; PCP Internal Medicine; Visit Provider Internal Medicine Cardiovascular Disease | DX: E11.9 Type 2 diabetes mellitus without complications (principal); Z68.41 Body mass index [BMI] 40.0-44.9, adult; Z71.3 Dietary counseling and surveillance | CPT/HCPCS: G0109 ==

== ENCOUNTER → 2018-09-01 12:33 | Outpatient (CLI) | payer MEDICARE, OTHER, SELFPAY | PROVIDERS: Family Provider Internal Medicine; PCP Internal Medicine; Referring Provider Internal Medicine Cardiovascular Disease; Visit Provider Internal Medicine Cardiovascular Disease | DX: I47.1 Supraventricular tachycardia (principal); I48.0 Paroxysmal atrial fibrillation; I49.1 Atrial premature depolarization; E11.9 Type 2 diabetes mellitus without complications; Z68.41 Body mass index [BMI] 40.0-44.9, adult; Z71.3 Dietary counseling and surveillance | CPT/HCPCS: 93225; 93226; G0109 ==

== ENCOUNTER 2018-09-28 10:15 | Outpatient (RCR) | payer MEDICARE, OTHER, SELFPAY ==
[2018-08-29 01:17] VITALS: BP 158/80; BP 174/84
--- NOTE | 2018-09-23 09:09 | CR.ITP_ITS ---
Exercise - Final/Discharge - Visit Date of Eval: 09/23/18 Session #:: 30 - Stages of Change Stages of Change:: Action - Exercise Prescription Mode:: Treadmill, Rower, Airdyne, NuStep Frequency (x/week): 3 Duration:: 35 METs: 6.5 Target Heart Rate:: 121-129 - Hypertension Do any of the following apply?: Yes Resting Blood Pressure:: 160/90 Peak Exercise Blood Pressure:: 176/88 - Intervention Home Exercise/Activity Goal:: Moderate Exercise 30 min/day x 5 days/wk - Education Goal Progress: Goal Met - Exercise Program Goals Exercise Program Goals: Aerobic Activity >30 min Nutrition - Initial Assessment - Program Goals Nutrition Program Goals: LDL <70. Total Cholesterol <200. HDL >45. Triglycerides <150. HgbA1C <7%. BMI <25 - Diabetes Do you monitor your blood sugar at home?: Yes Nutrition - Final Assessment - Program Goals Nutrition Program Goals: LDL <70. Total Cholesterol <200. HDL >45. Triglycerides <150. HgbA1C <7%. BMI <25 - Visit Date of Eval: 09/23/18 - Stages of Change Stages of Change:: Action - Diabetes Diabetes:: No - Weight Management Height: 5 ft 4 in Weight:: 230 lb Body Fat %:: 40.1 - Intervention Referral to dietitian:: No Referral to Diabetic Clinic:: No Will attend diet classes:: No - Education Education Goal Reached?: Yes Tobacco - Initial Assessment - Program Goals Tobacco Program Goals: Complete smoking cessation. Attend education classes. Improve Knowledge Test score - Learning Barriers Learning Barriers: Ready to Learn Tobacco - Final Assessment - Program Goals Tobacco Program Goals: Complete smoking cessation. Attend education classes. Improve Knowledge Test score - Stage of Change Stages of Change:: Action - Family Support Do you have family support?: Yes - Tobacco Use Tobacco Use: Non-smoker Do you use smokeless tobacco?: No - Intervention Smoking Cessation Referral:: No Individual Education/Counseling:: No Education Schedule Given:: Yes - Education Education Goal Reached?: Yes Psychosocial - Initial Assess - Target Goals Target Goals: Assess presence or absence of depression. Using a valid screening tool, maximizes coping skills. Positive support system - Psychosocial Test Tool Used:: HANDS Depression Questionnaire - Assistive Devices Fall Risk Assessed:: Yes Psychosocial - Final Assessmen - Target Goals Target Goals: Assess presence or absence of depression. Using a valid screening tool, maximizes coping skills. Positive support system - Stages of Change Stages of Change:: Action - Psychosocial Test Tool Used:: HANDS Depression Questionnaire - Intervention PS - Interventions: Yes Attend Stress Management Classes, Yes Uses Stress Management Skills, No Referral to Mental Health, No Referral to [facility] Case Management, No Referral to Physician - Education Education Goal Reached?: Yes - Patient/Program Goal Preventative Medication(s):: Aspirin, Clopidogrel, Beta frank, Statin/lipid - Assistive Devices Assistive Devices:: None Fall Risk Assessed:: Yes Patient Health Questionnaire Discharge Assessment 1. Little interest or pleasure in doing things: Not at all 2. Feeling down, depressed, or hopeless: Not at all 3. Trouble falling or staying asleep, or sleeping too much: Not at all 4. Feeling tired or having little energy: Not at all 5. Poor appetite or overeating: Not at all 6. Feeling bad about yourself -- or that you are a failure or have let yourself or your family down: Not at all 7. Trouble concentrating on things, such as reading the newspaper or watching television: Not at all 8. Moving or speaking so slowly that other people could have noticed. Or the opposite - being so fidgety or restless that you have been moving around a lot more than usual: Not at all 9. Thoughts that you would be better off , or of hurting yourself in some way: Not at all Total Score: 0 CATE-Q SV Test - Statements CAD is a disease of the arteries in the heart: False Examples of risk factors for heart disease: True Angina is chest pain or discomfort: True The benefits of resistance training include: True Eating more meat and dairy products: False Anti-platelet medications such as aspirin are important: True The only effective way to manage stress: False An exercise warm-up slowly increases heart rate: True Prepared, processed foods usually have high sodium: True Depression is common after a heart attack: True The statin medications lower cholesterol: True To control blood pressure, lower the amount of sodium: True If someone gets chest discomfort during walking: False Transfats are partially hydrogenated vegetable oils: True Sleep apnea that is not treated increases the risk: False To control cholesterol, one should become a vegetarian: False Someone knows if he/she is exercising at the right level: True Diabetes cannot be prevented with exercise & health eating: False Stress is a large risk for heart attack: True A diet that can help lower blood pressure is rich in: True - Total Score Total Correct Responses: 20 Self-Efficacy Discharge Assessment We would like to know how confident you are in doing certain activities. Please select your confidence level for:: Select your confidence level for the following using the scale 1-10 where 1 is not at all confident and 10 is totally confident. Your score is the average of all 6 responses. Fatigue: How confident are you that you can keep the fatigue caused by your disease from interfering with the things you want to do? Select Number: 10 Physical Discomfort or Pain: How confident are you that you can keep the physical discomfort or pain of your disease from interfering with the things you want to do? Select Number: 10 Emotional Distress: How confident are you that you can keep the emotional distress caused by your disease from interfering with the things you want to do? Select Number: 10 Other Symptoms or Health Problems: How confident are you that you can keep other symptoms or health problems from interfering with the things you want to do? Select Number: 10 Different Tasks and Activities: How confident are you that you can do the different tasks and activities needed to manage your health condition so as to reduce your need to see a doctor? Select Number: 10 Medication: How confident are you that you can do things other than just taking medication to reduce how much your illness affects your everyday life? Select Number: 10 Total Score:: 10 Nutrition Survey - Nutrition Survey Instructions Scoring Instructions: Scoring is as follows: Yes = 1 points. No = 0 point. Patient score that is >/=12 is considered to be at potential nutritional risk and could benefit from a referral to a registered dietitian. - Nutrition Survey Discharge Have you lost >10 lbs over the past 2 months without trying?: No Are you following a special diet at home for diabetes, low fat, or low salt?: No Are you interested in meeting with a dietitian for help understanding your diet?: No Do you eat less than 3 meals a day?: No Do you eat fatty meats (looney, sausage, ribs, etc), fried foods, desserts, large amounts of salad dressings, margarine, butter, or cheese most days?: No Do you have food allergies? [Enter types in comment field]: No Do you eat in restaurants more than 3 times a week?: No Do you season food with salt, seasoning salt, or garlic salt?: No Do you used canned, boxed, frozen meals, or soups, seasoning packets?: No Total Score:: 0
[2018-09-23 09:14] VITALS: BP 160/90; BP 176/88
== END 2018-09-28 23:59 ==
LOC: CR 10:15
PROVIDERS: Family Provider Internal Medicine; PCP Internal Medicine; Referring Provider Internal Medicine Cardiovascular Disease; Visit Provider Internal Medicine Cardiovascular Disease
DX: I25.10 Atherosclerotic heart disease of native coronary artery without angina pectoris (principal); Z95.1 Presence of aortocoronary bypass graft
CPT/HCPCS: 93798

== ENCOUNTER 2018-10-05 18:30 | Outpatient (RCR) | payer MEDICARE, OTHER, SELFPAY | END 2018-10-28 23:59 | LOC: DC 18:30 | PROVIDERS: Family Provider Internal Medicine; PCP Internal Medicine; Visit Provider Internal Medicine Cardiovascular Disease | DX: E11.9 Type 2 diabetes mellitus without complications (principal); Z68.41 Body mass index [BMI] 40.0-44.9, adult; Z71.3 Dietary counseling and surveillance; I25.10 Atherosclerotic heart disease of native coronary artery without angina pectoris; Z95.1 Presence of aortocoronary bypass graft | CPT/HCPCS: 93798; 97803; G0109 ==

== ENCOUNTER 2018-10-17 10:15 | Outpatient (RCR) | payer MEDICARE, OTHER, SELFPAY ==
[2018-09-29 01:17] VITALS: BP 160/90; BP 176/88
== END 2018-10-19 10:13 | disposition home or self-care (01) ==
LOC: CR 10:15
PROVIDERS: Family Provider Internal Medicine; PCP Internal Medicine; Referring Provider Internal Medicine Cardiovascular Disease; Visit Provider Internal Medicine Cardiovascular Disease
DX: I25.10 Atherosclerotic heart disease of native coronary artery without angina pectoris (principal); Z95.1 Presence of aortocoronary bypass graft
CPT/HCPCS: 93798

== ENCOUNTER 2018-11-02 16:30 | Outpatient (RCR) | payer MEDICARE, OTHER, SELFPAY ==
[2018-10-24 10:30] VITALS: BMI 40.1
== END 2018-11-28 23:59 ==
LOC: DC 16:30
PROVIDERS: Family Provider Internal Medicine; PCP Internal Medicine; Visit Provider Internal Medicine Cardiovascular Disease
DX: E11.9 Type 2 diabetes mellitus without complications (principal); E66.01 Morbid (severe) obesity due to excess calories; Z68.41 Body mass index [BMI] 40.0-44.9, adult; Z71.3 Dietary counseling and surveillance; I25.10 Atherosclerotic heart disease of native coronary artery without angina pectoris; Z95.1 Presence of aortocoronary bypass graft
CPT/HCPCS: G0109

== ENCOUNTER 2018-12-08 16:55 | Outpatient (RCR) | payer MEDICARE, OTHER, SELFPAY ==
[2018-10-24 10:30] VITALS: BMI 40.1
== END 2018-12-08 23:59 | disposition home or self-care (01) ==
LOC: DC 16:55
PROVIDERS: Family Provider Internal Medicine; PCP Internal Medicine; Visit Provider Internal Medicine Cardiovascular Disease
DX: E11.9 Type 2 diabetes mellitus without complications (principal); E66.01 Morbid (severe) obesity due to excess calories; Z68.41 Body mass index [BMI] 40.0-44.9, adult; Z71.3 Dietary counseling and surveillance
CPT/HCPCS: G0109

== ENCOUNTER → 2019-03-29 | Outpatient (CLI) | payer MEDICARE, OTHER, SELFPAY ==
[2018-10-24 10:30] VITALS: BMI 40.1
[2019-03-29 10:08] LABS: Absolute Lymphocyte Count 1.34 X10^3/ul (0.83-4.51); Absolute Neutrophil Count 2.8 X10^3/uL (2.0-7.7); Basophil# 0.03 X10^3/uL; Basophil% 0.6 % (0-1); Eosinophil# 0.22 X10^3/uL; Eosinophils% 4.6 % (0-5); Hematocrit 38.3 % (37-47); Hemoglobin 12.2 g/dl (12.0-15.0); Lymphocyte # 1.34 X10^3/ul (4.0); Lymphocyte % 27.9 % (19-41); Mean Corp Hgb Conc 31.9 g/gl (32-36); Mean Corpuscular Hgb 25.7 pg (27.0-32.0); Mean Corpuscular Volume 80.6 fL (81-99); Mean Platelet Vol. 12.3 fl (6.2-12.0); Monocyte# 0.42 X10^3/uL; Monocyte% 8.8 % (0-10); Neutrophil # 2.79 X10^3/uL (2.7-7.7); Neutrophil % 58.1 % (47-70); Platelet Count 187 K/mm3 (150-450); RBC Distribution Width CV 13.9 % (11.6-14.6); RBC Distribution Width SD 40.9 fl (35.1-43.9); Red Blood Count 4.75 M/mm3 (4.2-5.4); White Blood Count 4.8 K/mm3 (4.4-11.0)
[2019-03-29 10:20] LABS: POSITIVE COUNT NO; POSITIVE DIFFERENTIAL NO; POSITIVE MORPHOLOGY NO
[2019-03-29 10:36] LABS: AST(SGOT) 21 U/L (15-37); Alanine Aminotransfer ALT/SGPT 23 U/L (13-56); Albumin, Serum 3.8 g/dL (3.2-5.0); Alkaline Phosphatase 82 U/L (45-117); Anion Gap 2 (5-15); BUN 23 mg/dL (7-18); BUN/Creat Ratio 24.7 RATIO (10-20); Bilirubin, Direct 0.16 mg/dL (0.00-0.30); Calcium,Total 9.2 mg/dL (8.5-10.1); Chloride 105 mmol/L (98-107); Creatinine, Serum 0.93 mg/dL (0.55-1.02); EST Glomerular Filtration Rate 64 mL/min (>60); Est Glom Filt Rate - Afr Amer 77 mL/min (>60); Globulin 3.6 g/dL (2.2-4.2); Glucose 104 mg/dL (74-106); Potassium 4.8 mmol/L (3.5-5.1); Protein, Total 7.4 g/dL (6.4-8.2); Sodium Level 138 mmol/L (136-145)
[2019-03-31 12:58] LABS: Hep B Surface Antibodies Non Reactive (.); Hepatitis B Core Ab Total Negative (Negative)
== END | disposition home or self-care (01) ==
LOC: MTLAB 09:15
PROVIDERS: Family Provider Internal Medicine; PCP Internal Medicine; Referring Provider Nurse Practitioner Family; Visit Provider Nurse Practitioner Family
DX: L40.0 Psoriasis vulgaris (principal); L82.1 Other seborrheic keratosis; L81.4 Other melanin hyperpigmentation; D18.01 Hemangioma of skin and subcutaneous tissue; D22.5 Melanocytic nevi of trunk; L57.8 Other skin changes due to chronic exposure to nonionizing radiation; Z71.89 Other specified counseling
CPT/HCPCS: 36415; 80048; 80076; 85025; 86704; 86706

== ENCOUNTER → 2019-04-26 | Outpatient (CLI) | payer MEDICARE, OTHER, SELFPAY ==
[2019-04-05 11:14] VITALS: BMI 40.1
[2019-04-29 03:06] LABS: QNTFERON TB Mitogen Value > 10.00 IU/mL (.); QNTFERON TB Nil Value 0.01 IU/mL (.); QNTFERON TB1+ Ag Value 0.01 IU/mL (.); QNTFERON TB2+ Ag Value 0.01 IU/mL (.)
[2019-05-01 11:30] LABS: Hep C Antibodies <0.1 s/co ratio (0.0-0.9); QNTIFERON TB Positive Criteria Negative (Negative)
== END | disposition home or self-care (01) ==
LOC: MTLAB 11:24
PROVIDERS: Family Provider Internal Medicine; PCP Internal Medicine; Referring Provider Dermatology Pediatric Dermatology; Visit Provider Dermatology Pediatric Dermatology
DX: L40.0 Psoriasis vulgaris (principal)
CPT/HCPCS: 36415; 86480; 86803

== ENCOUNTER → 2019-10-30 07:52 | Outpatient (CLI) | payer MEDICARE, OTHER, SELFPAY ==
[2019-04-05 11:14] VITALS: BMI 40.1
[2019-10-30 08:52] LABS: Absolute Lymphocyte Count 0.99 X10^3/uL (0.83-4.51); Absolute Neutrophil Count 3.7 X10^3/uL (2.0-7.7); Basophil# 0.03 X10^3/uL; Basophil% 0.6 % (0-1); Eosinophil# 0.18 X10^3/uL; Eosinophils% 3.4 % (0-5); Hematocrit 35.9 % (37-47); Lymphocyte # 0.99 X10^3/ul (4.0); Lymphocyte % 18.6 % (19-41); Mean Corp Hgb Conc 30.6 g/dL (32-36); Mean Corpuscular Hgb 25.3 pg (27.0-32.0); Mean Corpuscular Volume 82.5 fL (81-99); Mean Platelet Vol. 11.9 fl (6.2-12.0); Monocyte# 0.38 X10^3/uL; Monocyte% 7.1 % (0-10); NRBC Flagged by Analyzer 0 % (0-5); Neutrophil # 3.73 X10^3/uL (2.7-7.7); Neutrophil % 70.1 % (47-70); Platelet Count 167 K/mm3 (150-450); RBC Distribution Width CV 13.4 % (11.6-14.6); RBC Distribution Width SD 40.4 fl (35.1-43.9); Red Blood Count 4.35 M/mm3 (4.2-5.4); White Blood Count 5.3 K/mm3 (4.4-11.0)
[2019-10-30 08:55] LABS: Color, Urine Yellow (Yellow); Glucose, Dipstick Normal (Normal); Ketone-Dipstick Negative (Negative); Leukocyte Esterase-Dipstick 25 /ul (Negative); Nitrite-Dipstick Negative (Negative); Occult Blood-Urine Negative /ul (Negative); Protein-Dipstick Negative (Negative); Specific Gravity, Urine 1.025 (1.002-1.030); Urine Bilirubin Dipstick Negative (Negative); Urine Clarity Sl. Cloudy (Clear); Urine Urobilinogen Normal (Normal)
[2019-10-30 09:13] LABS: Microalbumin,Random Urine 26.1 mg/L (NO RANGE EST.); Microalbumin:Creatinine Ratio 17.1 mg/g CRE (<30 mg/g CRE)
[2019-10-30 09:25] LABS: Bacteria RARE /hpf (None Seen); Mucous, Urine RARE /hpf (<or=2+); Red Blood Cells-Urine 0-5 SEEN /hpf (0-5); Squamous Epithelial Cells - UA 0-5 SEEN /hpf (5-10); White Blood Cells 0-5 SEEN /hpf (0-5)
[2019-10-30 09:32] LABS: ALB/GLOB Ratio 1.2 RATIO (0.9-2.4); AST(SGOT) 16 U/L (15-37); Alanine Aminotransfer ALT/SGPT 22 U/L (13-56); Albumin, Serum 3.7 g/dL (3.2-5.0); Alkaline Phosphatase 70 U/L (45-117); Anion Gap 7 (5-15); BUN 20 mg/dL (7-18); BUN/Creat Ratio 25.9 RATIO (10-20); Calcium,Total 9.1 mg/dL (8.5-10.1); Chloride 108 mmol/L (98-107); Creatinine, Serum 0.77 mg/dL (0.55-1.02); EST Glomerular Filtration Rate 79 mL/min (>60); Est Glom Filt Rate - Afr Amer 95 mL/min (>60); Free T3 2.1 pg/mL (2.18-3.98); Globulin 3.1 g/dL (2.2-4.2); Glucose 118 mg/dL (74-106); Potassium 3.9 mmol/L (3.5-5.1); Protein, Total 6.8 g/dL (6.4-8.2); Sodium Level 141 mmol/L (136-145); T4 Free Direct 1.05 ng/dL (0.76-1.46); Thyroid Stim Hormone (TSH) 3.39 uIU/mL (0.358-3.74)
[2019-10-31 14:07] LABS: CHOLESTEROL TOTAL 167 mg/dL (100-199); HDL-C 66 mg/dL (>39); HDL-P TOTAL 40.1 umol/L (>=30.5); SMALL LDL-P 301 nmol/L (<=527); TRIGLYCERIDES 97 mg/dL (0-149)
[2019-11-01 13:50] LABS: INSULIN RESISTANCE SCORE 31 (<=45); LDL SIZE 21.3 nm (>20.5); LDL-C 82 mg/dL (0-99); LDL-P 884 nmol/L (<1000)
== END ==
PROVIDERS: Family Provider Internal Medicine; PCP Internal Medicine; Referring Provider Internal Medicine; Visit Provider Internal Medicine
DX: E03.9 Hypothyroidism, unspecified (principal); E78.00 Pure hypercholesterolemia, unspecified; I10 Essential (primary) hypertension
CPT/HCPCS: 36415; 80053; 80061; 81001; 82043; 82570; 83704; 84439; 84443; 84481; 85025

== ENCOUNTER → 2019-11-27 14:07 | Outpatient (CLI) | payer MEDICARE, OTHER, SELFPAY ==
[2019-11-02 10:48] VITALS: BMI 47.6
--- NOTE | 2019-11-27 14:09 | RAD_ITS ---
STUDY: X-RAY - CERVICAL SPINE REASON FOR EXAM: Female, 69 years old. Cervical radiculopathy -- right sided neck pain x 1 month, NK -- numbness and tingling from right shoulder to right elbow TECHNIQUE: 7 view(s) of the cervical spine were obtained. COMPARISON: None FINDINGS: Normal anterior atlantoaxial articulation. Normal odontoid process. There is straightening of the normal cervical lordosis. There is multi-level endplate spondylosis. There is multi-level degenerative disc disease with multilevel disc space narrowing. There is multi-level osseous foraminal stenosis. The soft tissue structures are unremarkable. RAD/Cerv Spine 4 or 5 Views IMPRESSION: Multilevel degenerative changes, no acute findings Electronically Signed: Stephen Weber MD at 10:52 EST , Service support ,
== END ==
PROVIDERS: Family Provider Internal Medicine; PCP Internal Medicine; Referring Provider Internal Medicine; Visit Provider Internal Medicine
DX: M54.12 Radiculopathy, cervical region (principal)
CPT/HCPCS: 72050

== ENCOUNTER → 2019-12-12 08:18 | Outpatient (CLI) | payer MEDICARE, OTHER, SELFPAY ==
[2019-11-02 10:48] VITALS: BMI 47.6
--- NOTE | 2019-12-12 08:22 | BI_ITS ---
MAMMOGRAPHY - BILATERAL SCREENING REASON FOR EXAM: Female, 69 years old. Routine annual screening examination. PERTINENT HISTORY: Aunt with breast cancer. TECHNIQUE: Digital bilateral breast aarti (3D mammographic acquisition) in the CC and MLO projections. 2-D mediolateral oblique (MLO) and craniocaudad (CC) views of both breasts were obtained. CAD: Full Field Digital Mammography with Computer Added Detection was performed. COMPARISON: Comparison is made with prior study dated December 06, 2017 and November 16, 2016. FINDINGS: Breast Composition: There are scattered areas of fibroglandular density. There are no dominant masses or suspicious calcifications. Stable small benign appearing bilateral axillary lymph nodes. No other significant abnormalities are identified. There has been no significant change since the prior study. BI/SCREEN MAMM (CAD) W/AARTI BILAT IMPRESSION: Stable bilateral screening mammogram. Yearly follow-up mammogram recommended. (A) ASSESSMENT CATEGORY: BIRADS Category 2: Benign. A letter regarding these results will be sent to the patient by the facility within 30 days. Approximately 10% of breast cancers are not detected by mammography. A normal mammogram should not delay biopsy of a clinically suspicious abnormality. [id number] Electronically Signed: Dominik Banerjee, at 9:57 EST , Service support ,
--- NOTE | 2019-12-12 08:50 | BD_ITS ---
STUDY: DUAL ENERGY X-RAY ABSORPTIOMETRY / DXA REASON FOR EXAM: Female, 69 years old. POST OFFICE MANAGER -- HX OF HRT -- PRE-DIABETIC- TAKES METFORMIN -- TAKES THYROID MEDICATION -- TAKES VITAMIN D -- DOES MODERATE AMOUNT OF EXERCISE -- HERBER OF 0.5 INCH TECHNIQUE: Bone Mineral Density (BMD) measurements of lumbar spine and bilateral hips were obtained. COMPARISON: Comparison is made with prior examination dated September 24, 2015. FINDINGS: Lumbar Spine (L1-L4): g/cm2 (1.179) / T-score (-0.2) / Z-score (1.5) Findings are suggestive of normal bone density with a low fracture risk. Left Femur Total: g/cm2 (1.004) / T-score (0.0) / Z-score (1.4) Left Femoral Neck: g/cm2 (0.950) / T-score (-0.6) / Z-score (1.0) Right Femur Total: g/cm2 (1.012) / T-score (0.0) / Z-score (1.5) Right Femoral Neck: g/cm2 (0.914) / T-score (-0.9) / Z-score (0.8) The T-Scores on the most recent prior examination were: Lumbar Spine (L1-L4): There has been improvement of bone density since the previous examination. Left Femur Total: which represents a worsening of 7.2%. Right Femur Total: which represents a worsening of 2.5%. BD/Dexa Bone Density Study IMPRESSION: The patient is considered normal as outlined below according to World Arsenio Organization (WHO) criteria with a low fracture risk. There has been worsening of bone density since the previous examination. Reference Information: The T-score is the number of standard deviations above or below the standard which is normal for young adults at their peak bone mineral density. The World Health Organization (WHO) interprets the T-scores as follows: Above -1 Normal bone density Between -1 and -2.5 Osteopenia Equal to / or below -2.5 Osteoporosis As a practical clinical guideline, osteopenia may be graded as follows: Mild -1 through -1.5 Moderate -1.6 through -2.0 Severe -2.1 through -2.4 The Z-score is the number of standard deviations above or below age-matched controls. A Z-score of less than -1.5 would be considered abnormal. References: 1. NIH Osteoporosis and Related Bone Diseases http://www.osteo.org 2. International Society for Clinical Densitometry http://www.iscd.org 3. National Osteoporosis Foundation http://www.nof.org Electronically Signed: Dominik Banerjee, at 15:19 EST , Service support ,
== END ==
PROVIDERS: Family Provider Internal Medicine; PCP Internal Medicine; Referring Provider Internal Medicine; Visit Provider Internal Medicine
DX: Z12.31 Encounter for screening mammogram for malignant neoplasm of breast (principal); Z78.0 Asymptomatic menopausal state
CPT/HCPCS: 77063; 77067; 77080

== ENCOUNTER 2019-12-27 10:30 | Outpatient (RCR) | payer MEDICARE, OTHER, SELFPAY ==
[2019-11-02 10:48] VITALS: BMI 47.6
--- NOTE | 2019-11-14 13:58 | HP.PTEVAL_ITS ---
Patient's Visit Information VIPIN CHANG is a 69 year old F referred to Physical Therapy by Tracie Mendez DO with a diagnosis of CERVICAL RADICULOPATHY. Date of Evaluation: 11/14/19 Physical Therapist: Luana Soliman PT, Cert MDT - Visit Plan Frequency: 2-3x /Week Duration: 4-6 Weeks Plan: US, POSTURE CORRECTION/STRENGTHENING, INSTRUCTION IN APPROPRIATE BODY MECHANICS AND ACTIVITY MODIFICATIONS. MARÍA UE ROM, STRETCHING AND STRENGTHENING. HEP INSTRUCTION. - Subjective Findings: Work/Leisure: RETIRED. Present symptoms: RIGHT NECK PAIN. PAIN GOES TO MIDDLE OF EAR, COLLAR BONE AND RIGHT CHEST AREAS - ALSO TO TOP OF RIGHT SHLD BLADE AND INTO FACE. THEY FEEL LIKE SPASMS AND THEY ARE GETTING WORSE. Present since: ABOUT 3 WEEKS. Pain Scale: Worst - 8/10 Least - 2/10. Currently: /10. Commenced as a result of: NO APPARENT REASON. Symptoms at onset: SPASM RIGHT SIDE OF NECK. Worse: MOVING RIGHT ARM CERTAIN WAYS. TYING TO LIE DOWN IN BED. Better: TIME. Disturbed sleep: YES. Previous histo ry/Previous treatment: UNREMARKABLE. Dizziness: NO. Tinnitis: NO. Nausea: ONE DAY. Shortness of Breath: NO. Difficulty Swollowing: NO. Gait: NORMAL. Accidents: NO. Unexplained weight loss: NO. Imaging: NO. 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 NIDDM. HTN. PSORIATIC ARTHRITIS. - Objective Sitting Posture/Standing Posture: POOR. FH. RS. NO TORTICOLLIS. Active Correction of posture: BETTER. Other Observations: INDEP GAIT AND TRANSFERS. Motor deficit: MARÍA UE STRENGTH GROSSLY 4/5. 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 TESTING INCREASES RIGHT NECK PAIN. Sensory deficit: MARÍA UE LIGHT TOUCH SENSATION IS INTACT AND SYMMETRICAL. ROM deficit: MARÍA UE ROM WFL BUT TESTING OF RIGHT UE INCREASES RIGHT NECK PAIN. Reflexes: NT. Dural Signs: POSITIVE RIGHT UE. Cervical Mvmt Loss: Flex: NIL. Pro: NIL. Ext: MICHELLE. Ret: MICHELLE. RSB: MOD. LSB: MICHELLE. R Rot: MOD. L Rot: MOD. Postural strength: POOR. Palpation: NO ACUTE TENDERNESS OF THE UPPER THORACIC OR CERVICAL SPINE. MILD RIGHT UPPER TRAP AND CLAVICLE TENDERNESS. OTHER: DISTRACTION TESTING HAS NO EFFECT ON SX'S. - Goals Goal 1:: DECREASE C/O RIGHT NECK, SHLD AND CHEST PAIN. Goal Time Frame: 4-6 Weeks Goal 2:: IMPROVE ADL, LIFTING, READING, SLEEP, DRIVING AND RECREATIONAL FUNCTION. Goal Time Frame: 4-6 Weeks Goal 3:: INSTRUCT IN PROPHYLAXIS Goal Time Frame: 4-6 Weeks - Rehabilitation Potential Rehabilitation Potential: Fair - Anticipated Interventions Patient/Client Instruction: Educate patient on: Condition, Plan of Care, Risk Factors, Benefits of Fitness Program For the Purpose of:: To improve self management Therapeutic Exercise to Include: Strength training, Body mechanics, Postural training, Flexibilty training, Scapular Strength/Stabilization For the Purpose of:: To decrease pain, To increase ROM, To improve muscle performance and motor function, To increase tolerance to activity/condition/position, To improve ability of physical actions for home/community/work/leisure Manual Therapy Techniques to Include: Soft tissue mobilization For the Purpose of:: To decrease pain, To increase ROM, To improve nutrient delivery to tissue Cryotherapy (ice pack, ice massage): Yes Thermo therapy (hot pack): Yes Ultrasound (thermal/non thermal): Yes For the Purpose of:: To decrease pain, To improve nutrient delivery to tissue Thank you for the opportunity to evaluate your patient. For Medicare and Medicare HMO plans, please review the plan of care and approve it. It will need to be FAXED BACK to us at [phone] for Medicare purposes. For Medicare only, by signing this I certify the plan of care. Please let me know if there are questions or concerns regarding this plan of care. Physician Signature: Date:
--- NOTE | 2019-12-13 11:58 | HP.PTREVAL ---
Tracie Richmond, DO, It has been my pleasure to treat VIPIN CHANG over the last 11 visits for CERVICAL RADICULOPATHY. Please see the progress note below for an update on the physical therapy plan of care! Subjective: IT IS STILL CONTINUING TO LESSEN WHEN I STAND UP BUT I JUST CAN'T GET RID OF THAT NUMBNESS. IT STILL FEELS REALLY TIGHT. I'M NOT SLEEPING WELL. DR. RICHMOND IS SICK SO MY ALEX'T WAS RESCHEDULED TO NEXT WEDNESDAY. PATIENT REPORTS INCREASED PAIN RIGHT NOW FOR NO APPARENT REASON. Objective/Function: PATIENT WAS SEEN TODAY FOR RE-ASSESSMENT OF PROGRESS TOWARD THE SET PT GOALS AND THE NEED FOR FURTHER PHYSICAL THERAPY VS READINESS FOR DISCHARGE. SHE IS MAKING SLOW PROGRESS TOWARD THE SET PT GOALS AND IS A GOOD CANDIDATE TO CONTINUE PT. Plan Plan: POSTURE CORRECTION/STRENGTHENING, INSTRUCTION IN APPROPRIATE BODY MECHANICS AND ACTIVITY MODIFICATIONS. MARÍA UE ROM, STRETCHING AND STRENGTHENING. HEP INSTRUCTION. Goals Goal 1:: DECREASE C/O RIGHT NECK, SHLD AND CHEST PAIN. Goal Time Frame: 4-6 Weeks Goal Progress: Progressing Goal 2:: IMPROVE ADL, LIFTING, READING, SLEEP, DRIVING AND RECREATIONAL FUNCTION. Goal Time Frame: 4-6 Weeks Goal Progress: Progressing Goal 3:: INSTRUCT IN PROPHYLAXIS Goal Time Frame: 4-6 Weeks Goal Progress: Progressing Anticipated Interventions Patient/Client Instruction: Educate patient on: Condition, Plan of Care, Risk Factors, Benefits of Fitness Program For the Purpose of:: To improve self management Therapeutic Exercise to Include: Strength training, Body mechanics, Postural training, Flexibilty training, Scapular Strength/Stabilization For the Purpose of:: To decrease pain, To increase ROM, To improve muscle performance and motor function, To increase tolerance to activity/condition/position, To improve ability of physical actions for home/community/work/leisure Manual Therapy Techniques to Include: Soft tissue mobilization For the Purpose of:: To decrease pain, To increase ROM, To improve nutrient delivery to tissue Cryotherapy (ice pack, ice massage): Yes Thermo therapy (hot pack): Yes Ultrasound (thermal/non thermal): Yes For the Purpose of:: To decrease pain, To improve nutrient delivery to tissue Please do not hesitate to contact me at [phone] by phone or if you have questions or concerns regarding this new plan of care! Sincerely, Luana Soliman, PT, Cert MDT
--- NOTE | 2019-12-27 11:03 | HP.PTDCSUM_ITS ---
HP - PT D/C Summary It has been my pleasure to treat VIPIN CHANG under orders from Tracie Mendez DO, for the diagnosis of CERVICAL RADICULOPATHY for a total of 15 visit(s). Discharge Date: 12/27/19 Please see the following information for a summary of their discharge status. - Subjective Subjective: PATIENT REPORTS SHE IS DEFINATELY BETTER BUT HER SX'S ARE STAYING ABOUT THE SAME NOW. TOLERANCE TO HOME EX'S SLOWLY IMPROVING. - Pain R UT Pain Intensity (Out of 10): 5 - Overall Improvement % Improvement: 60 - Objective Objective/Function: PATIENT WAS SEEN TODAY FOR RE-ASSESSMENT OF PROGRESS TOWARD THE SET PT GOALS AND THE NEED FOR FURTHER PHYSICAL THERAPY VS READINESS FOR DISCHARGE. PATIENT HAS MADE PROGRESS TOWARD ALL PT GOALS AND IS INDEP WITH A HEP. UPON EXAM TODAY: Motor deficit: MARÍA UE STRENGTH GROSSLY 4/5. PATIENT IS RIGHT HAND DOMINANT WITH A RIGHT INSURANCE LEGAL ASSISTANT STRENGTH OF 60 LBS AND LEFT 60 LBS. TESTING INCREASES RIGHT NECK TINGLING MILDLY. Sensory deficit: MARÍA UE LIGHT TOUCH SENSATION IS INTACT AND SYMMETRICAL. ROM deficit: MARÍA UE ROM WFL AND TESTING OF RIGHT UE DOES NOT INCREASE RIGHT NECK PAIN TODAY. Reflexes: NT. Dural Signs: NEGATIVE MARÍA UE'S. Cervical Mvmt Loss: Flex: NIL. Pro: NIL. Ext: MOD. Ret: MOD. RSB: MOD. LSB: MOD. R Rot: MOD. L Rot: MOD. Postural strength: POOR. Palpation: NO ACUTE TENDERNESS IN CERVICAL, TRAP OR CLAVICLE REGIONS TODAY. - Goals Goal 1:: DECREASE C/O RIGHT NECK, SHLD AND CHEST PAIN. Goal Progress: Goal Met Goal 2:: IMPROVE ADL, LIFTING, READING, SLEEP, DRIVING AND RECREATIONAL FUNCTION. Goal Progress: Goal Met Goal 3:: INSTRUCT IN PROPHYLAXIS Goal Progress: Goal Met - Plan Plan: D/C TO HEP. PATIENT AGREEABLE. - D/C Information If there are questions or concerns regarding this patient's physical therapy, please feel free to call me at [phone]. Thank you for the referral of this patient. Sincerely, Luana Soliman, PT, Cert MDT
== END 2019-12-27 19:00 | disposition home or self-care (01) ==
LOC: PT 10:30
PROVIDERS: Family Provider Internal Medicine; PCP Internal Medicine; Referring Provider Internal Medicine; Visit Provider Internal Medicine
DX: M54.12 Radiculopathy, cervical region (principal)
CPT/HCPCS: 97035; 97110; 97162; 97164; 97530

== ENCOUNTER → 2020-03-05 09:09 | Outpatient (CLI) | payer MEDICARE, OTHER, SELFPAY ==
[2019-11-02 10:48] VITALS: BMI 47.6
[2020-03-05 09:28] LABS: Absolute Lymphocyte Count 1.08 X10^3/uL (0.83-4.51); Absolute Neutrophil Count 2.9 X10^3/uL (2.0-7.7); Basophil# 0.03 X10^3/uL; Basophil% 0.6 % (0-1); Eosinophil# 0.31 X10^3/uL; Eosinophils% 6.6 % (0-5); Hematocrit 38.2 % (37-47); Lymphocyte # 1.08 X10^3/ul (4.0); Lymphocyte % 22.9 % (19-41); Mean Corp Hgb Conc 31.4 g/dL (32-36); Mean Corpuscular Hgb 26.7 pg (27.0-32.0); Mean Corpuscular Volume 84.9 fL (81-99); Mean Platelet Vol. 11.2 fl (6.2-12.0); Monocyte# 0.37 X10^3/uL; Monocyte% 7.9 % (0-10); NRBC Flagged by Analyzer 0 % (0-5); Neutrophil # 2.91 X10^3/uL (2.7-7.7); Neutrophil % 61.8 % (47-70); Platelet Count 162 K/mm3 (150-450); RBC Distribution Width SD 45.5 fl (35.1-43.9); White Blood Count 4.7 K/mm3 (4.4-11.0)
[2020-03-05 10:10] LABS: Free T3 2.2 pg/mL (2.18-3.98); T4 Free Direct 1.16 ng/dL (0.76-1.46); Thyroid Stim Hormone (TSH) 2.27 uIU/mL (0.358-3.74)
== END ==
LOC: MTLAB 09:12 → LAB 09:18
PROVIDERS: PCP Internal Medicine; Referring Provider Internal Medicine; Visit Provider Internal Medicine
DX: E03.9 Hypothyroidism, unspecified (principal); D64.9 Anemia, unspecified
CPT/HCPCS: 36415; 84439; 84443; 84481; 85025

== ENCOUNTER → 2020-08-26 09:54 | Outpatient (CLI) | payer MEDICARE, OTHER, SELFPAY ==
[2020-05-07 09:19] VITALS: BMI 44.6
[2020-08-26 11:11] LABS: Absolute Lymphocyte Count 1.29 X10^3/uL (0.83-4.51); Absolute Neutrophil Count 3.7 X10^3/uL (2.0-7.7); Basophil# 0.05 X10^3/uL; Basophil% 0.9 % (0-1); Eosinophil# 0.27 X10^3/uL; Eosinophils% 4.8 % (0-5); Hematocrit 39.6 % (37-47); Hemoglobin 12.6 g/dL (12.0-15.0); Lymphocyte # 1.29 X10^3/ul (4.0); Lymphocyte % 22.8 % (19-41); Mean Corp Hgb Conc 31.8 g/dL (32-36); Mean Corpuscular Hgb 27.6 pg (27.0-32.0); Mean Corpuscular Volume 86.7 fL (81-99); Mean Platelet Vol. 11.4 fl (6.2-12.0); Monocyte# 0.39 X10^3/uL; Monocyte% 6.9 % (0-10); NRBC Flagged by Analyzer 0 % (0-5); Neutrophil # 3.65 X10^3/uL (2.7-7.7); Neutrophil % 64.4 % (47-70); Platelet Count 170 K/mm3 (150-450); RBC Distribution Width SD 41.1 fl (35.1-43.9); Red Blood Count 4.57 M/mm3 (4.2-5.4); White Blood Count 5.7 K/mm3 (4.4-11.0)
[2020-08-26 11:40] LABS: ALB/GLOB Ratio 1.1 RATIO (0.9-2.4); AST(SGOT) 21 U/L (15-37); Alanine Aminotransfer ALT/SGPT 28 U/L (13-56); Albumin, Serum 3.8 g/dL (3.2-5.0); Alkaline Phosphatase 74 U/L (45-117); Anion Gap 4 (5-15); BUN 18 mg/dL (7-18); BUN/Creat Ratio 22.5 RATIO (10-20); Calcium,Total 9.1 mg/dL (8.5-10.1); Chloride 104 mmol/L (98-107); EST Glomerular Filtration Rate 75 mL/min (>60); Est Glom Filt Rate - Afr Amer 91 mL/min (>60); Globulin 3.5 g/dL (2.2-4.2); Glucose 102 mg/dL (74-106); Potassium 4.3 mmol/L (3.5-5.1); Protein, Total 7.3 g/dL (6.4-8.2); Sodium Level 137 mmol/L (136-145)
[2020-08-28 20:07] LABS: QNTFERON TB Mitogen Value > 10.00 IU/mL (.); QNTFERON TB Nil Value 0.01 IU/mL (.); QNTFERON TB1+ Ag Value 0.02 IU/mL (.); QNTFERON TB2+ Ag Value 0.01 IU/mL (.)
[2020-08-28 21:07] LABS: QNTIFERON TB Positive Criteria Negative (Negative)
== END ==
PROVIDERS: PCP Internal Medicine; Referring Provider Physician Assistant; Visit Provider Physician Assistant
DX: L40.0 Psoriasis vulgaris (principal); I87.2 Venous insufficiency (chronic) (peripheral); Z79.899 Other long term (current) drug therapy
CPT/HCPCS: 36415; 80053; 85025; 86480

== ENCOUNTER 2021-02-04 16:27 | Outpatient (RCR) | payer MEDICARE, OTHER, SELFPAY ==
[2020-11-04 09:31] VITALS: BMI 47.0
[2021-02-04] MEDS: COVID-19 VACC, MRNA(PFIZER)/PF 30 MCG/0.3 ML SYRINGE IM (09:20)
[2021-02-25] MEDS: COVID-19 VACC, MRNA(PFIZER)/PF 30 MCG/0.3 ML SYRINGE IM (09:06)
== END 2021-05-06 23:59 ==
LOC: IMMUN 16:27
PROVIDERS: PCP Internal Medicine; Referring Provider Family Medicine; Visit Provider Family Medicine
DX: Z23 Encounter for immunization (principal)
CPT/HCPCS: 0001A; 0002A; 91300

== ENCOUNTER → 2021-03-25 07:55 | Outpatient (CLI) | payer MEDICARE, OTHER, SELFPAY ==
[2020-11-04 09:31] VITALS: BMI 47.0
--- NOTE | 2021-03-25 07:58 | BI_ITS ---
MAMMOGRAPHY - BILATERAL SCREENING REASON FOR EXAM: Female, 70 years old. Routine annual screening examination. PERTINENT HISTORY: Aunt with breast cancer. TECHNIQUE: Digital bilateral breast aarti (3D mammographic acquisition) in the CC and MLO projections. 2-D mediolateral oblique (MLO) and craniocaudad (CC) views of both breasts were obtained. CAD: Full Field Digital Mammography with Computer Added Detection was performed. COMPARISON: Comparison is made with prior study dated 06/11/2020 and 12/06/2017. FINDINGS: Breast Composition: There are scattered areas of fibroglandular density. There are no dominant masses or suspicious calcifications. Stable small benign appearing bilateral axillary lymph nodes. No other significant abnormalities are identified. There has been no significant change since the prior study. BI/SCRN MAMM (CAD)W/AARTI BILAT IMPRESSION: Stable bilateral screening mammogram. Yearly follow-up mammogram recommended. (A) ASSESSMENT CATEGORY: BIRADS Category 2: Benign. A letter regarding these results will be sent to the patient by the facility within 30 days. Approximately 10% of breast cancers are not detected by mammography. A normal mammogram should not delay biopsy of a clinically suspicious abnormality. [id number] Electronically Signed: Dominik Banerjee MD at 9:51 EDT , Service support ,
== END ==
PROVIDERS: PCP Internal Medicine; Referring Provider Internal Medicine; Visit Provider Internal Medicine
DX: Z12.31 Encounter for screening mammogram for malignant neoplasm of breast (principal)
CPT/HCPCS: 77063; 77067

== ENCOUNTER → 2021-05-22 08:02 | Outpatient (CLI) | payer MEDICARE, OTHER, SELFPAY ==
[2020-11-04 09:31] VITALS: BMI 47.0
[2021-05-22 09:27] LABS: Absolute Lymphocyte Count 1.12 X10^3/uL (0.83-4.51); Absolute Neutrophil Count 2.9 X10^3/uL (2.0-7.7); Basophil# 0.04 X10^3/uL; Basophil% 0.8 % (0-1); Eosinophil# 0.24 X10^3/uL; Eosinophils% 5.1 % (0-5); Hematocrit 40.7 % (37-47); Lymphocyte # 1.12 X10^3/ul (0.83-4.51); Lymphocyte % 23.6 % (19-41); Mean Corp Hgb Conc 31.9 g/dL (32-36); Mean Corpuscular Hgb 27.7 pg (27.0-32.0); Mean Corpuscular Volume 86.8 fL (81-99); Mean Platelet Vol. 11.7 fl (6.2-12.0); Monocyte# 0.46 X10^3/uL; Monocyte% 9.7 % (0-10); NRBC Flagged by Analyzer 0 % (0-5); Neutrophil # 2.88 X10^3/uL (2.7-7.7); Neutrophil % 60.6 % (47-70); Platelet Count 198 K/mm3 (150-450); RBC Distribution Width SD 40.7 fl (35.1-43.9); Red Blood Count 4.69 M/mm3 (4.2-5.4); White Blood Count 4.8 K/mm3 (4.4-11.0)
[2021-05-22 09:48] LABS: Microalbumin:Creatinine Ratio 5.5 mg/g CRE (<30 mg/g CRE)
[2021-05-22 10:03] LABS: Vitamin B12 380 pg/mL (211-911)
[2021-05-22 10:13] LABS: ALB/GLOB Ratio 1.1 RATIO (0.9-2.4); AST(SGOT) 22 U/L (15-37); Alanine Aminotransfer ALT/SGPT 32 U/L (13-56); Albumin, Serum 3.9 g/dL (3.2-5.0); Alkaline Phosphatase 71 U/L (45-117); Anion Gap 4 (5-15); BUN 14 mg/dL (7-18); BUN/Creat Ratio 15.6 RATIO (10-20); Calcium,Total 9.1 mg/dL (8.5-10.1); Chloride 104 mmol/L (98-107); Cholesterol 148 mg/dL (200); EST Glomerular Filtration Rate 66 mL/min (>60); Est Glom Filt Rate - Afr Amer 80 mL/min (>60); Globulin 3.5 g/dL (2.2-4.2); Glucose 102 mg/dL (74-106); High Density Lipoprotein 67 mg/dL; Potassium 4.4 mmol/L (3.5-5.1); Protein, Total 7.4 g/dL (6.4-8.2); Sodium Level 137 mmol/L (136-145); Thyroid Stim Hormone (TSH) 1.76 uIU/mL (0.358-3.74); Triglycerides 84 mg/dL; Very Low Density Lipoprotein 17 mg/dL (5-40)
== END ==
PROVIDERS: PCP Internal Medicine; Referring Provider Internal Medicine; Visit Provider Internal Medicine
DX: E53.8 Deficiency of other specified B group vitamins (principal); R73.09 Other abnormal glucose; R53.83 Other fatigue; I25.10 Atherosclerotic heart disease of native coronary artery without angina pectoris
CPT/HCPCS: 36415; 80053; 80061; 82043; 82570; 82607; 84443; 85025

== ENCOUNTER → 2021-09-23 11:40 | Outpatient (CLI) | payer MEDICARE, OTHER, SELFPAY ==
[2021-09-23 12:45] LABS: Absolute Lymphocyte Count 1.73 X10^3/uL (0.83-4.51); Absolute Neutrophil Count 3.3 X10^3/uL (2.0-7.7); Basophil# 0.05 X10^3/uL; Basophil% 0.9 % (0-1); Eosinophil# 0.26 X10^3/uL; Eosinophils% 4.5 % (0-5); Hematocrit 40.1 % (37-47); Hemoglobin 13.1 g/dL (12.0-15.0); Lymphocyte # 1.73 X10^3/ul (0.83-4.51); Lymphocyte % 29.9 % (19-41); Mean Corp Hgb Conc 32.7 g/dL (32-36); Mean Corpuscular Hgb 28.6 pg (27.0-32.0); Mean Corpuscular Volume 87.6 fL (81-99); Mean Platelet Vol. 11.8 fl (6.2-12.0); Monocyte# 0.47 X10^3/uL; Monocyte% 8.1 % (0-10); NRBC Flagged by Analyzer 0 % (0-5); Neutrophil # 3.25 X10^3/uL (2.7-7.7); Neutrophil % 56.3 % (47-70); Platelet Count 223 K/mm3 (150-450); RBC Distribution Width CV 12.5 % (11.6-14.6); RBC Distribution Width SD 40.2 fl (35.1-43.9); Red Blood Count 4.58 M/mm3 (4.2-5.4); White Blood Count 5.8 K/mm3 (4.4-11.0)
[2021-09-23 13:29] LABS: ALB/GLOB Ratio 0.9 RATIO (0.9-2.4); AST(SGOT) 19 U/L (15-37); Alanine Aminotransfer ALT/SGPT 28 U/L (13-56); Albumin, Serum 3.5 g/dL (3.2-5.0); Alkaline Phosphatase 70 U/L (45-117); Anion Gap 10 (5-15); BUN 21 mg/dL (7-18); BUN/Creat Ratio 20.2 RATIO (10-20); Calcium,Total 9.2 mg/dL (8.5-10.1); Chloride 104 mmol/L (98-107); Creatinine, Serum 1.04 mg/dL (0.55-1.02); EST Glomerular Filtration Rate 56 mL/min (>60); Est Glom Filt Rate - Afr Amer 67 mL/min (>60); Globulin 3.8 g/dL (2.2-4.2); Glucose 111 mg/dL (74-106); Potassium 4.2 mmol/L (3.5-5.1); Protein, Total 7.3 g/dL (6.4-8.2); Sodium Level 141 mmol/L (136-145)
[2021-09-30 16:08] LABS: QNTFERON TB Mitogen Value > 10.00 IU/mL (.); QNTFERON TB Nil Value 0.01 IU/mL (.); QNTFERON TB1+ Ag Value 0.02 IU/mL (.); QNTFERON TB2+ Ag Value 0.04 IU/mL (.)
[2021-09-30 16:38] LABS: QNTIFERON TB Positive Criteria Negative (Negative)
== END ==
PROVIDERS: PCP Internal Medicine; Referring Provider Physician Assistant; Visit Provider Physician Assistant
DX: L40.0 Psoriasis vulgaris (principal); Z79.899 Other long term (current) drug therapy
CPT/HCPCS: 36415; 80053; 85025; 86480

== ENCOUNTER → 2022-07-14 | Outpatient (CLI) | payer MEDICARE, OTHER, SELFPAY ==
--- NOTE | 2022-07-14 12:23 | BI_ITS ---
MAMMOGRAPHY - BILATERAL SCREENING 3-D TOMOSYNTHESIS REASON FOR EXAM: Female, 72 years old. SCREENING PERTINENT HISTORY: No significant family history. TECHNIQUE: 2-D mammograms and 3-D Tomosynthesis of the breast (s) were performed. CAD was performed. COMPARISON: 03/25/2021 FINDINGS: The breast composition is composed of scattered fibroglandular density. Scattered benign calcifications are seen. No dense spiculated masses or suspicious microcalcifications are identified. No architectural distortion is identified. There is no skin thickening or retraction. There has been no significant change since the prior study. BI/SCRN MAMM (CAD)W/AARTI BILAT IMPRESSION: No mammographic signs of malignancy. Routine yearly mammograms recommended. ASSESSMENT CATEGORY: BIRADS Category 1: Negative. A letter regarding these results will be sent to the patient by the facility within 30 days. FOLLOW UP RECOMMENDATION: Yearly follow up mammogram recommended. (A) Approximately 10% of breast cancers are not detected by mammography. A normal mammogram should not delay biopsy of a clinically suspicious abnormality. Electronically Signed: Guido Gomez MD at 16:45 EDT ,
--- NOTE | 2022-07-14 12:28 | BD_ITS ---
STUDY: DUAL ENERGY X-RAY ABSORPTIOMETRY / DXA REASON FOR EXAM: Female, 72 years old. [id number]. The patient is postmenopausal. TECHNIQUE: Bone Mineral Density (BMD) measurements of lumbar spine and bilateral hips were obtained. COMPARISON: Comparison is made with prior study dated 12/12/2019. FINDINGS: Lumbar Spine (L1-L4): g/cm2 (0.986) / T-score (-0.6) / Z-score (1.7) Findings are suggestive of normal bone density with a low fracture risk. Left Femur Total: g/cm2 (0.968) / T-score (0.2) / Z-score (1.8) Left Femoral Neck: g/cm2 (0.779) / T-score (-0.6) / Z-score (1.3) Right Femur Total: g/cm2 (0.954) / T-score (0.1) / Z-score (1.7) Right Femoral Neck: g/cm2 (0.807) / T-score (-0.4) / Z-score (1.5) The T-Scores on the most recent prior examination were: Lumbar Spine (L1-L4): There has been worsening of bone density since the previous examination. Left Femur Total: which represents an improvement of 3.2%. Right Femur Total: which represents an improvement of 0.9%. BD/Dexa Bone Density Study IMPRESSION: The patient is considered normal as outlined below according to World Arsenio Organization (WHO) criteria with a low fracture risk. There has been improvement of bone density since the previous examination. Reference Information: The T-score is the number of standard deviations above or below the standard which is normal for young adults at their peak bone mineral density. The World Health Organization (WHO) interprets the T-scores as follows: Above -1 Normal bone density Between -1 and -2.5 Osteopenia Equal to / or below -2.5 Osteoporosis As a practical clinical guideline, osteopenia may be graded as follows: Mild -1 through -1.5 Moderate -1.6 through -2.0 Severe -2.1 through -2.4 The Z-score is the number of standard deviations above or below age-matched controls. A Z-score of less than -1.5 would be considered abnormal. References: 1. NIH Osteoporosis and Related Bone Diseases www osteo.org 2. International Society for Clinical Densitometry www iscd.org 3. National Osteoporosis Foundation www nof.org Electronically Signed: Dominik Banerjee MD at 12:22 EDT ,
== END | disposition home or self-care (01) ==
LOC: OPBD 12:20
PROVIDERS: PCP Internal Medicine; Visit Provider Internal Medicine
DX: Z12.31 Encounter for screening mammogram for malignant neoplasm of breast (principal); Z78.0 Asymptomatic menopausal state; M85.80 Other specified disorders of bone density and structure, unspecified site
CPT/HCPCS: 77063; 77067; 77080

== ENCOUNTER → 2022-10-06 | Outpatient (CLI) | payer MEDICARE, OTHER, SELFPAY ==
[2022-10-06 13:29] LABS: Absolute Lymphocyte Count 1.33 X10^3/uL (0.83-4.51); Absolute Neutrophil Count 3.8 X10^3/uL (2.0-7.7); Basophil# 0.03 X10^3/uL; Basophil% 0.5 % (0-1); Eosinophil# 0.23 X10^3/uL; Eosinophils% 3.9 % (0-5); Hematocrit 37.5 % (37-47); Hemoglobin 12.2 g/dL (12.0-15.0); Lymphocyte # 1.33 X10^3/ul (0.83-4.51); Lymphocyte % 22.7 % (19-41); Mean Corp Hgb Conc 32.5 g/dL (32-36); Mean Corpuscular Hgb 28.4 pg (27.0-32.0); Mean Corpuscular Volume 87.2 fL (81-99); Mean Platelet Vol. 12.1 fl (6.2-12.0); Monocyte# 0.48 X10^3/uL; Monocyte% 8.2 % (0-10); NRBC Flagged by Analyzer 0 % (0-5); Neutrophil # 3.76 X10^3/uL (2.7-7.7); Neutrophil % 64.4 % (47-70); Platelet Count 198 K/mm3 (150-450); RBC Distribution Width CV 13.2 % (11.6-14.6); RBC Distribution Width SD 41.4 fl (35.1-43.9); White Blood Count 5.9 K/mm3 (4.4-11.0)
[2022-10-06 14:07] LABS: ALB/GLOB Ratio 1.1 RATIO (0.9-2.4); AST(SGOT) 20 U/L (15-37); Alanine Aminotransfer ALT/SGPT 26 U/L (13-56); Albumin, Serum 3.6 g/dL (3.2-5.0); Alkaline Phosphatase 67 U/L (45-117); Anion Gap 8 (5-15); BUN 22 mg/dL (7-18); Bilirubin, Direct 0.13 mg/dL (0.00-0.30); Calcium,Total 8.8 mg/dL (8.5-10.1); Chloride 105 mmol/L (98-107); Creatinine, Serum 0.92 mg/dL (0.55-1.02); EST Glomerular Filtration Rate 64 mL/min (>60); Est Glom Filt Rate - Afr Amer 77 mL/min (>60); Globulin 3.3 g/dL (2.2-4.2); Glucose 100 mg/dL (74-106); Potassium 4.6 mmol/L (3.5-5.1); Protein, Total 6.9 g/dL (6.4-8.2); Sodium Level 140 mmol/L (136-145)
[2022-10-06 14:33] LABS: Hepatitis B Surf AB - EMP Non-Reactive; Hepatitis B Surface Antigen Non-Reactive (Nonreactive); Hepatitis C Antibody Non-Reactive (Nonreactive)
[2022-10-08 21:07] LABS: QNTFERON TB Mitogen Value > 10.00 IU/mL (.); QNTFERON TB Nil Value 0 IU/mL (.); QNTFERON TB1+ Ag Value 0 IU/mL (.); QNTFERON TB2+ Ag Value 0 IU/mL (.)
[2022-10-09 15:09] LABS: Hepatitis A AB, Total Negative (Negative); QNTIFERON TB Positive Criteria Negative (Negative)
== END | disposition home or self-care (01) ==
PROVIDERS: PCP Internal Medicine; Referring Provider Physician Assistant; Visit Provider Physician Assistant
DX: L81.0 Postinflammatory hyperpigmentation (principal); L43.8 Other lichen planus
CPT/HCPCS: 36415; 80053; 82248; 85025; 86480; 86706; 86708; 86803; 87340

== ENCOUNTER → 2023-07-13 | Outpatient (CLI) | payer MEDICARE, OTHER, SELFPAY ==
--- NOTE | 2023-07-19 16:47 | STRESSREP ---
Stress Test Report Date: 07/13/2023 Procedure: Pharmacologic stress nuclear imaging study Indications: History of CAD/fatigue Consent: Per the patient Procedure: The patient underwent pharmacologic (Regadenoson 0.4mg ) evaluation with a peak heart rate of 87 beats per minute (59%predicted maximal heart rate) and a peak blood pressure of 142/84 mmHg. The baseline ECG demonstrated normal sinus rhythm. The peak pharmacologic ECG demonstrated ST changes in inferior and lateral leads however they do not fulfill criteria for ischemia. There were no cardiac dysrhythmias pretest, during pharmacologic infusion, or recovery. There was no complaint of chest discomfort during pharmacologic infusion or recovery. The patient was injected with 14.8 millicuries of technetium 99m Cardiolite and subsequently rest SPECT Cardiolite nuclear imaging was obtained in the horizontal long, vertical long, and short axis views. The patient underwent pharmacologic (Regadenoson) evaluation. The patient was injected with 44.3 millicuries of technetium 99m Cardiolite and subsequently stress SPECT Cardiolite nuclear imaging was obtained in the horizontal long, vertical long, and short axis views. A gated Cardiolite study at peak stress was obtained. The examination was stopped secondary to completion of protocol. Rest and stress SPECT Cardiolite nuclear imaging status post realignment, normalization, and attenuation correction demonstrate no fixed or reversible perfusion defects. There is end systolic thickening and brightening. The gated Cardiolite study demonstrates myocardial thickening and inward wall motion. The reported LVEF is 78%. Impression: 1. Pharmacologic (Regadenoson) evaluation 2. Peak pharmacologic ECG with no diagnostic ischemic changes. 3. There were no cardiac dysrhythmias pretest, during pharmacologic infusion, or recovery. 5. Rest and stress SPECT Cardiolite nuclear imaging demonstrate relative uniform tracer uptake and myocardial perfusion appearing within normal limits. 6. The gated Cardiolite study reports an LVEF of 78%. This note was generated with Perficientation software. It may contain incorrect words, spelling, and punctuation that were not noted in checking the note before signing.
== END | disposition home or self-care (01) ==
LOC: CVS 06:59
PROVIDERS: PCP Internal Medicine; Referring Provider Nurse Practitioner Family; Visit Provider Nurse Practitioner Family
DX: R06.02 Shortness of breath (principal); I48.0 Paroxysmal atrial fibrillation; R53.83 Other fatigue; E78.5 Hyperlipidemia, unspecified; I10 Essential (primary) hypertension; I25.10 Atherosclerotic heart disease of native coronary artery without angina pectoris
CPT/HCPCS: 78452; 93017; A9500; A4216; J2785

== ENCOUNTER → 2023-11-27 | Outpatient (CLI) | payer MEDICARE, OTHER, SELFPAY ==
[2023-12-01 20:07] LABS: Hepatitis B Core Ab Total Negative (Negative); QNTFERON TB Mitogen Value > 10.00 IU/mL (.); QNTFERON TB Nil Value 0.01 IU/mL (.); QNTFERON TB1+ Ag Value 0.01 IU/mL (.); QNTFERON TB2+ Ag Value 0.01 IU/mL (.); QNTIFERON TB Positive Criteria Negative (Negative)
== END | disposition home or self-care (01) ==
LOC: LAB 10:42
PROVIDERS: PCP Internal Medicine; Referring Provider Physician Assistant; Visit Provider Physician Assistant
DX: L40.0 Psoriasis vulgaris (principal); L43.8 Other lichen planus; L81.0 Postinflammatory hyperpigmentation; Z79.899 Other long term (current) drug therapy
CPT/HCPCS: 36415; 86480; 86704

== ENCOUNTER → 2024-03-18 | Outpatient (CLI) | payer MEDICARE, OTHER, SELFPAY ==
[2024-03-18 09:57] LABS: ALB/GLOB Ratio 1.1 RATIO (0.9-2.4); AST(SGOT) 13 U/L (15-37); Alanine Aminotransfer ALT/SGPT 20 U/L (13-56); Albumin, Serum 3.5 g/dL (3.2-5.0); Alkaline Phosphatase 67 U/L (45-117); Anion Gap 7 (5-15); BUN 33 mg/dL (7-18); BUN/Creat Ratio 27.3 RATIO (10-20); Calcium,Total 9.2 mg/dL (8.5-10.1); Chloride 103 mmol/L (98-107); Cholesterol 176 mg/dL (200); Creatinine, Serum 1.21 mg/dL (0.55-1.02); EST Glomerular Filtration Rate 46 mL/min (>60); Est Glom Filt Rate - Afr Amer 56 mL/min (>60); Globulin 3.3 g/dL (2.2-4.2); Glucose 109 mg/dL (74-106); High Density Lipoprotein 56 mg/dL; Potassium 4.2 mmol/L (3.5-5.1); Protein, Total 6.8 g/dL (6.4-8.2); Sodium Level 137 mmol/L (136-145); Triglycerides 152 mg/dL; Very Low Density Lipoprotein 30 mg/dL (5-40)
== END | disposition home or self-care (01) ==
PROVIDERS: PCP Internal Medicine; Referring Provider Internal Medicine Cardiovascular Disease; Visit Provider Internal Medicine Cardiovascular Disease
DX: E78.00 Pure hypercholesterolemia, unspecified (principal); I48.0 Paroxysmal atrial fibrillation; I25.10 Atherosclerotic heart disease of native coronary artery without angina pectoris; I49.1 Atrial premature depolarization; I47.10 Supraventricular tachycardia, unspecified; Z95.1 Presence of aortocoronary bypass graft
CPT/HCPCS: 36415; 80053; 80061

== ENCOUNTER 2024-05-11 12:47 | Outpatient (CLI) | payer MEDICARE, OTHER, SELFPAY ==
--- NOTE | 2024-05-11 12:50 | ECHOCS_ITS ---
Reason For Study: DYSPNEA Procedure This was a 2D Doppler, Color Flow transthoracic echocardiogram. The study was technically difficult. Contrast injection was performed. Exam performed in department. Left Ventricle Normal LV size. Mild concentric left ventricular hypertrophy. The left ventricular ejection fraction is 65 %. Stage 2 diastolic dysfunction. Right Ventricle Normal right ventricle. Atria The left atrium is moderately enlarged. Normal right atrium. Mitral Valve Severe mitral annular calcification. Mild mitral valve stenosis. Mild (1+) mitral valve insufficiency. Tricuspid Valve Mild tricuspid valve insufficiency. Right ventricular systolic pressure estimated to be 45 mmHg. Aortic Valve Trisinus/trileaflet aortic valve. Pulmonic Valve The pulmonic valve is not well visualized. Great Vessels Normal sized aortic root. Pericardium/Pleural No pericardial effusion. Medication 22 gauge I.V. with prn adaptor inserted into right arm. Diluted definity 1.5ml given slow IV push to enhance endocardial definition. MMode/2D Measurements & Calculations LVIDd: 4.0 cm IVSd: 1.5 cm Ao root diam: 3.4 cm LVIDs: 2.6 cm LVPWd: 1.2 cm RVDd: 3.6 cm FS: 34.8 % LAV(MOD-bp): 91.6 ml LVAd ap4: 29.5 cm2 SV(MOD-sp4): 75.5 ml LAV(MOD-bp) Indexed: 41.0 ml/m2 LVLd ap4: 7.5 cm LAV(MOD-sp2): 86.5 ml EDV(MOD-sp4): 95.4 ml LAV(MOD-sp4): 85.1 ml EDV(sp4-el): 98.3 ml LVAs ap4: 11.7 cm2 LVLs ap4: 5.6 cm ESV(MOD-sp4): 19.9 ml ESV(sp4-el): 20.6 ml EF(MOD-sp4): 79.1 % EF(sp4-el): 79.0 % SV(sp4-el): 77.6 ml LA A4 area: 26.7 cm2 LA dimension(2D): 3.8 cm RA A4 area: 11.8 cm2 TAPSE: 1.9 cm Time Measurements MV dec time: 0.28 sec Doppler Measurements & Calculations MV E max weston: 140.3 cm/sec Lat Peak E' Weston: 9.3 cm/sec Med Peak E' Weston: 6.5 cm/sec MV A max weston: 152.2 cm/sec E/E' lat: 15.1 E/E' med: 21.6 MV E/A: 0.92 MV V2 max: 156.5 cm/sec MV dec slope: 505.4 cm/sec2 Ao V2 max: 181.3 cm/sec MV max P.8 mmHg Ao max P.2 mmHg MV V2 mean: 93.2 cm/sec Ao V2 mean: 130.9 cm/sec MV mean P.2 mmHg Ao mean P.6 mmHg MV V2 VTI: 67.4 cm Ao V2 VTI: 45.4 cm AV (velocity ratio): 0.98 LV V1 max: 163.6 cm/sec PA V2 max: 128.6 cm/sec TR max weston: 317.1 cm/sec LV V1 max P.7 mmHg PA V2 mean: 97.1 cm/sec TR max P.2 mmHg LV V1 mean P.2 mmHg LV V1 mean: 98.7 cm/sec LV V1 VTI: 44.3 cm ECHO/Echo Complete W/ Contrast Interpretation Summary Mild concentric left ventricular hypertrophy. The left ventricular ejection fraction is 65 %. Stage 2 diastolic dysfunction. The left atrium is moderately enlarged. Severe mitral annular calcification. Mild (1+) mitral valve insufficiency. Mild mitral valve stenosis. Mild tricuspid valve insufficiency. Right ventricular systolic pressure estimated to be 45 mmHg. Ordering Physician: Isael Silver Referring Physician: Isael Silver Performed By: Khushub Gaona RCS
== END 2024-05-11 23:59 | disposition home or self-care (01) ==
LOC: CVS 12:49
PROVIDERS: PCP Internal Medicine; Referring Provider Internal Medicine Cardiovascular Disease; Visit Provider Internal Medicine Cardiovascular Disease
DX: R94.31 Abnormal electrocardiogram [ECG] [EKG] (principal); E11.9 Type 2 diabetes mellitus without complications; R06.00 Dyspnea, unspecified; D50.9 Iron deficiency anemia, unspecified; E53.8 Deficiency of other specified B group vitamins
CPT/HCPCS: 36415; 80061; 82607; 82728; 83036; 83540; 83550; 93306; Q9957; A4216; C8929

== ENCOUNTER → 2024-05-11 | Outpatient (CLI) | payer MEDICARE, OTHER, SELFPAY ==
[2024-05-11 15:37] LABS: Hemoglobin A1c 6.1 % (3.8-5.6)
[2024-05-11 16:11] LABS: Cholesterol 144 mg/dL (200); Ferritin 23 ng/mL (8-252); High Density Lipoprotein 60 mg/dL; Iron 68 ug/dL (50-170); Iron Binding Capacity,Total 358 ug/dL (250-450); Triglycerides 115 mg/dL; Very Low Density Lipoprotein 23 mg/dL (5-40)
[2024-05-11 16:23] LABS: Vitamin B12 550 pg/mL (211-911)
== END | disposition home or self-care (01) ==
LOC: LAB 14:00
PROVIDERS: PCP Internal Medicine; Referring Provider Internal Medicine; Visit Provider Internal Medicine
DX: D50.9 Iron deficiency anemia, unspecified (principal); E11.9 Type 2 diabetes mellitus without complications; E53.8 Deficiency of other specified B group vitamins
CPT/HCPCS: 36415; 80061; 82607; 82728; 83036; 83540; 83550

== ENCOUNTER → 2024-09-23 | Outpatient (CLI) | payer MEDICARE, OTHER, SELFPAY ==
[2024-09-23 09:04] LABS: Absolute Lymphocyte Count 0.99 X10^3/uL (0.83-4.51); Absolute Neutrophil Count 4.2 X10^3/uL (2.0-7.7); Basophil# 0.04 X10^3/uL; Basophil% 0.7 % (0-1); Eosinophil# 0.29 X10^3/uL; Eosinophils% 4.8 % (0-5); Hematocrit 37.4 % (37-47); Hemoglobin 11.8 g/dL (12.0-15.0); Lymphocyte # 0.99 X10^3/ul (0.83-4.51); Lymphocyte % 16.6 % (19-41); Mean Corp Hgb Conc 31.6 g/dL (32-36); Mean Corpuscular Hgb 27.6 pg (27.0-32.0); Mean Corpuscular Volume 87.6 fL (81-99); Mean Platelet Vol. 11.7 fl (6.2-12.0); Monocyte# 0.47 X10^3/uL; Monocyte% 7.9 % (0-10); NRBC Flagged by Analyzer 0 % (0-5); Neutrophil # 4.17 X10^3/uL (2.7-7.7); Neutrophil % 69.7 % (47-70); Platelet Count 188 K/mm3 (150-450); RBC Distribution Width CV 13.3 % (11.6-14.6); RBC Distribution Width SD 42.5 fl (35.1-43.9); Red Blood Count 4.27 M/mm3 (4.2-5.4)
[2024-09-23 10:04] LABS: Microalbumin,Random Urine 30.6 mg/L (NO RANGE EST.); Microalbumin:Creatinine Ratio 22.7 mg/g CRE (<30 mg/g CRE)
[2024-09-23 10:41] LABS: AST(SGOT) 14 U/L (15-37); Alanine Aminotransfer ALT/SGPT 23 U/L (13-56); Albumin, Serum 3.5 g/dL (3.2-5.0); Alkaline Phosphatase 71 U/L (45-117); Anion Gap 4 (5-15); BUN 49 mg/dL (7-18); BUN/Creat Ratio 34.3 RATIO (10-20); Calcium,Total 9.6 mg/dL (8.5-10.1); Chloride 108 mmol/L (98-107); Cholesterol 160 mg/dL (200); Creatinine, Serum 1.43 mg/dL (0.55-1.02); EST Glomerular Filtration Rate 38 mL/min (>60); Est Glom Filt Rate - Afr Amer 46 mL/min (>60); Ferritin 21 ng/mL (8-252); Globulin 3.5 g/dL (2.2-4.2); Glucose 134 mg/dL (74-106); High Density Lipoprotein 62 mg/dL; Iron 81 ug/dL (50-170); Iron Binding Capacity,Total 355 ug/dL (250-450); PERCENT IRON SATURATION 22.8 % (15.0-55.0); Potassium 4.9 mmol/L (3.5-5.1); Sodium Level 139 mmol/L (136-145); Triglycerides 119 mg/dL; Very Low Density Lipoprotein 24 mg/dL (5-40)
[2024-09-25 09:02] LABS: Vitamin B12 435 pg/mL (211-911); Vitamin D,25 Hydroxy 28.5 ng/mL
== END | disposition home or self-care (01) ==
PROVIDERS: PCP Internal Medicine; Referring Provider Internal Medicine Cardiovascular Disease; Visit Provider Internal Medicine Cardiovascular Disease
DX: E11.9 Type 2 diabetes mellitus without complications (principal); E78.00 Pure hypercholesterolemia, unspecified; E03.9 Hypothyroidism, unspecified; E53.8 Deficiency of other specified B group vitamins; D50.9 Iron deficiency anemia, unspecified; E55.9 Vitamin D deficiency, unspecified
CPT/HCPCS: 80053; 80061; 82043; 82306; 82570; 82607; 82728; 83540; 83550; 84443; 85025

== ENCOUNTER → 2025-10-30 | Outpatient (CLI) | payer MEDICARE, OTHER, SELFPAY ==
--- NOTE | 2025-10-30 12:45 | BI_ITS ---
EXAM: SCRN MAMM (CAD)W/AARTI BILAT DATE: 10/30/2025 CLINICAL HISTORY: F, Age 75 y/o , SCREENING No family history. TECHNIQUE: Procedure Code: [id number] Modality: MG Procedure: SCRN MAMM (CAD)W/AARTI BILAT COMPARISON: Prior exam(s) dated July 14, 2022. FINDINGS: TISSUE DENSITY: There are scattered areas of fibroglandular density. Bilateral Breast Mammographic Findings: No significant masses, calcifications or other abnormalities are identified. No suspicious masses, areas of developing architectural distortion, or suspicious calcifications. There has been no significant interval change. BI/SCRN MAMM (CAD)W/AARTI BILAT IMPRESSION: Stable bilateral screening mammogram. OVERALL FINAL ASSESSMENT BI-RADS 1: NEGATIVE. RECOMMENDATION: Routine annual follow-up in 1 Year Additional Recommendation none A letter with findings and recommendations will be mailed to the patient. Reading Location: [facility]
== END | disposition home or self-care (01) ==
PROVIDERS: PCP Internal Medicine; Referring Provider Internal Medicine; Visit Provider Internal Medicine
DX: Z12.31 Encounter for screening mammogram for malignant neoplasm of breast (principal)
CPT/HCPCS: 77063; 77067